=== PATIENT | female | born 1950 | race Caucasian/White ===

== ENCOUNTER 2017-04-17 16:54 | Emergency (ER) | payer MEDICARE, OTHER ==
--- NOTE | 2017-04-17 18:10 | EDM.PDOC ---
ED HPI GENERAL MEDICAL PROBLEM - General Chief Complaint: Lower Extremity Injury/Pain Stated Complaint: PT HAS INFECTION IN RT FOOT Time Seen by Provider: 04/17/17 18:05 Source of Information: Reports: Patient History Limitations: Reports: No Limitations - History of Present Illness INITIAL COMMENTS - FREE TEXT/NARRATIVE: HISTORY AND PHYSICAL: []67-year-old female presenting with right foot pain and erythema History of Present Illness: []Patient underwent surgery in [place] on her foot 3 different areas of incision there is a pin at the fourth right toe Erythema to the dorsum of her right foot exudate present Review of Systems: As per history of present illness and below otherwise all systems reviewed and negative. Past medical history: As per history of present illness and as reviewed below otherwise noncontributory. Surgical history: As per history of present illness and as reviewed below otherwise noncontributory. Social history: No reported history of drug or alcohol abuse. Family history: As per history of present illness and as reviewed below otherwise noncontributory. Physical exam: Alert and oriented female answering questions appropriately she is using full sentences without any shortness of breath HEENT: Atraumatic, normocehpalic, pupils reactive, negative for conjunctival pallor or scleral icterus, mucous membranes moist, throat clear, neck supple, nontender, trachea midline. Lungs: Clear to auscultation, breath sounds equal bilaterally, chest non tender. Heart: S1S2, regular, negative for clicks, rubs, or JVD. Abdomen: Soft, nondistended, nontender. Negative for masses or hepatossplenmegaly. Negative for costovertebral tenderness. Pelvis: Stable nontender. Genitourinary: Deferred. Rectal: Deferred Extremities: Right foot with new sutures, lateral ball of the foot sutures are in place no erythema present. Dorsum of the right foot wide area of erythema and exudate. Pin noted in the fifth toe. negative for cords or calf pain. Neurovascular unremarkable. Neuro: Awake, alert, oriented. Cranial nerves II through XII unremarkable. Cerebellum unremarkable. Motor and sensory unremarkable throughout. Exam nonfocal. Have discussed the concerns with Dr. Graham at [place] in [place], [place]. Have discussed that there are does not seem to be any flucuation/ fluid pockets on the x-ray chest the laboratory values my concerns regarding infection. Have discussed with him Rocephin given IV. He is agreeable she should have some Ceftin orally twice a day. Recheck her tomorrow for increasing erythema. If all looks well we'll have her keep her appointment Thursday. If there is any increase in the erythema will have her go to [place] to be admited as inpatient. Diagnostics: [CBC CMP blood cultures 2 wound culture x-rays] Therapeutics: [Rocephin 1 g IV] Impression: [Localized infection to right foot] Plan: []Discharge to home Place on antibiotic therapy Follow up with your surgeon in [place] Definitive disposition and diagnosis as appropriate pending reevaluation and review of above. Onset: Sudden (2) Duration: Day(s): (2) Location: Reports: Lower Extremity, Right Severity: Moderate Right Feet Pain Score (Numeric/FACES): 4 - Related Data Allergies Allergy/AdvReac Type Severity Reaction Status Date / Time No Known Allergies Allergy Verified 04/17/17 17:50 Home Meds: Home Meds Adalimumab [Humira Pediatric Crohn's] 40 mg IM ASDIRECTED 04/17/17 [History] Cefuroxime [Ceftin] 250 mg PO BID #10 tablet 04/17/17 [Rx] Naproxen Sodium [Aleve] 220 mg PO BID 04/17/17 [History] Past Medical History Immunologic History: Reports: Other (See Below) Other Immunologic History: RA Oncologic (Cancer) History: Reports: Other (See Below) Other Oncologic History: "skin cancer" Social & Family History - Family History Family Medical History: Noncontributory - Tobacco Use Smoking Status *Q: Never Smoker Second Hand Smoke Exposure: No - Caffeine Use Caffeine Use: Reports: Coffee - Recreational Drug Use Recreational Drug Use: No Review of Systems - Review of Systems Review Of Systems: ROS reveals no pertinent complaints other than HPI. ED EXAM, GENERAL - Physical Exam Exam: See Below (See dictation) Course - Vital Signs Last Recorded V/S: Last Vital Signs Temp 36.2 C 04/17/17 17:54 Pulse 72 04/17/17 17:54 Resp 16 04/17/17 17:54 BP 183/102 H 04/17/17 17:54 Pulse Ox 98 04/17/17 17:54 - Orders/Labs/Meds Orders: Active Orders 24 hr Category Date Time Status Foot 2V Rt [CR] Stat Exams 04/17/17 18:13 Taken CULTURE BLOOD [BC] Stat Lab 04/17/17 18:24 Received CULTURE BLOOD [BC] Stat Lab 04/17/17 18:30 Received CULTURE WOUND [RM] Stat Lab 04/17/17 18:28 Received Sodium Chloride 0.9% [Saline Flush] Med 04/17/17 18:12 Active 10 ml FLUSH ASDIRECTED PRN Sodium Chloride 0.9% [Saline Flush] Med 04/17/17 18:12 Active 2.5 ml FLUSH ASDIRECTED PRN Blood Culture x2 Reflex Set [OM.PC] Stat Oth 04/17/17 18:12 Ordered Saline Lock Insert [OM.PC] Stat Oth 04/17/17 18:12 Ordered Medication Orders Sodium Chloride (Saline Flush) 10 ml FLUSH ASDIRECTED PRN PRN Reason: Keep Vein Open Sodium Chloride (Saline Flush) 2.5 ml FLUSH ASDIRECTED PRN PRN Reason: Keep Vein Open Labs: Laboratory Tests 04/17/17 04/17/17 Range/Units 18:24 18:24 WBC 10.76 (4.0-11.0) K/uL RBC 5.11 (4.30-5.90) M/uL Hgb 14.3 (12.0-16.0) g/dL Hct 42.7 (36.0-46.0) % MCV 83.6 (80.0-98.0) fL MCH 28.0 (27.0-32.0) pg MCHC 33.5 (31.0-37.0) g/dL RDW Std Deviation 43.2 (28.0-62.0) fl RDW Coeff of [place]oz[place] 14 (11.0-15.0) % Plt Count 230 (150-400) K/uL MPV 10.90 (7.40-12.00) fL Neut % (Auto) 52.4 (48.0-80.0) % Lymph % (Auto) 35.6 (16.0-40.0) % [place] % (Auto) 8.7 (0.0-15.0) % Eos % (Auto) 2.6 (0.0-7.0) % Baso % (Auto) 0.7 (0.0-1.5) % Neut # (Auto) 5.6 (1.4-5.7) K/uL Lymph # (Auto) 3.8 H (0.6-2.4) K/uL [place] # (Auto) 0.9 H (0.0-0.8) K/uL Eos # (Auto) 0.3 (0.0-0.7) K/uL Baso # (Auto) 0.1 (0.0-0.1) K/uL Nucleated RBC % 0.0 /100WBC Nucleated RBCs # 0 K/uL Sodium 140 (136-146) mmol/L Potassium 4.1 (3.5-5.1) mmol/L Chloride 110 (98-110) mmol/L Carbon Dioxide 20 L (21-31) mmol/L BUN 22 (6.0-23.0) mg/dL Creatinine 1.0 (0.6-1.5) mg/dL Est Cr Clr Drug Dosing TNP Estimated GFR (MDRD) 55.0 ml/min Glucose 99 (60-110) mg/dL Calcium 9.8 (8.8-10.8) mg/dL Total Bilirubin 0.5 (0.1-1.5) mg/dL AST 23 (5-40) IU/L ALT 16 (8-54) IU/L Alkaline Phosphatase 98 (40-150) Total Protein 7.7 (6.0-8.0) g/dL Albumin 3.9 (3.4-4.8) g/dL Globulin 3.8 H (2.0-3.5) g/dL Albumin/Globulin Ratio 1.0 L (1.3-2.8) Meds: Medications Generic Name Dose Route Start Last Admin Trade Name Freq PRN Reason Stop Dose Admin Sodium Chloride 10 ml 04/17/17 18:12 Saline Flush FLUSH ASDIRECTED PRN Keep Vein Open Sodium Chloride 2.5 ml 04/17/17 18:12 Saline Flush FLUSH ASDIRECTED PRN Keep Vein Open Discontinued Medications Generic Name Dose Route Start Last Admin Trade Name Freq PRN Reason Stop Dose Admin Ceftriaxone Sodium/Dextrose 1 50 mls @ 100 mls/hr 04/17/17 18:50 04/17/17 19: 27 gm/ Premix IV 04/17/17 19:19 100 mls/hr ONETIME ONE Administration Departure - Departure Time of Disposition: 20:36 Disposition: Home, Self-Care 01 Condition: Good Clinical Impression: Infection of right foot - Discharge Information Prescriptions: Cefuroxime [Ceftin] 250 mg PO BID #10 tablet Referrals: PCP,None [Primary Care Provider] - Forms: ED Department Discharge Additional Instructions: The following information is given to patients seen in the emergency department who are being discharged to home. This information is to outline your options for follow-up care. We provide all patients seen in our emergency department with a follow-up referral. The need for follow-up, as well as the timing and circumstances, are variable depending upon the specifics of your emergency department visit. If you don't have a primary care physician on staff, we will provide you with a referral. We always advise you to contact your personal physician following an emergency department visit to inform them of the circumstance of the visit and for follow-up with them and/or the need for any referrals to a consulting specialist. The emergency department will also refer you to a specialist when appropriate. This referral assures that you have the opportunity for followup care with a specialist. All of these measure are taken in an effort to provide you with optimal care, which includes your followup. Under all circumstances we always encourage you to contact your private physician who remains a resource for coordinating your care. When calling for followup care, please make the office aware that this follow-up is from your recent emergency room visit. If for any reason you are refused follow-up, please contact the [facility] emergency department at and asked to speak to the emergency department charge nurse. For the infection on your foot have given you Rocephin 1 g IV tonight Prescription has been electronically sent to and pharmacy Please return tomorrow so that your foot may be reevaluated I did discuss this case with your surgeon Dr. Graham and if the redness has expanded will need to advise [facility] and he will see her there - My Orders Last 24 Hours: My Active Orders 04/17/17 18:12 Sodium Chloride 0.9% [Saline Flush] 10 ml FLUSH ASDIRECTED PRN Sodium Chloride 0.9% [Saline Flush] 2.5 ml FLUSH ASDIRECTED PRN Blood Culture x2 Reflex Set [OM.PC] Stat Saline Lock Insert [OM.PC] Stat 04/17/17 18:13 Foot 2V Rt [CR] Stat 04/17/17 18:24 CULTURE BLOOD [BC] Stat 04/17/17 18:28 CULTURE WOUND [RM] Stat 04/17/17 18:30 CULTURE BLOOD [BC] Stat - Assessment/Plan Last 24 Hours: My Active Orders 04/17/17 18:12 Sodium Chloride 0.9% [Saline Flush] 10 ml FLUSH ASDIRECTED PRN Sodium Chloride 0.9% [Saline Flush] 2.5 ml FLUSH ASDIRECTED PRN Blood Culture x2 Reflex Set [OM.PC] Stat Saline Lock Insert [OM.PC] Stat 04/17/17 18:13 Foot 2V Rt [CR] Stat 04/17/17 18:24 CULTURE BLOOD [BC] Stat 04/17/17 18:28 CULTURE WOUND [RM] Stat 04/17/17 18:30 CULTURE BLOOD [BC] Stat
[2017-04-17] MEDS ORDERED: Sodium Chloride 0.9% 10 ML Syringe FLUSH PRN (18:12)
[2017-04-17] MEDS ORDERED: Sodium Chloride 0.9% 2.5 ML Syringe FLUSH PRN (18:12)
[2017-04-17] MEDS ORDERED: cefTRIAXone 1 GM in Premix Bag 1 BAG IV ONE (18:50)
[2017-04-17 19:04] LABS: CHLORIDE,CL 110 mmol/L (98-110); SODIUM,NA 140 mmol/L (136-146)
--- NOTE | 2017-04-19 06:11 | CR ---
EXAM DATE: 04/17/17 PATIENT'S AGE: 67 Patient: SCAR COLBY Facility: [place], [place] Site . Site : [id number] Study: XRay Extremity foot [id number]/[id number] 7:08:39 PM Ordering Physician: Doctor Gonzalez Final Report: INDICATION: Infection following surgery 3 weeks prior TECHNIQUE: Two views right foot COMPARISON: None FINDINGS: Bones: Alignment is normal. No fractures or bone lesions. Joint spaces: Plate screw fixation across the 2nd MTP joint of the great toe. Percutaneous pin extends from the proximal 4th metatarsal bone through the distal phalanx traversing the MCP, PIP and DIP joint spaces. Soft tissues: Soft tissue edema dorsal to the metatarsal bones on the lateral view. IMPRESSION: Soft tissue edema dorsal to the metatarsal bones on the lateral view. Dictated by Juarez Bowden MD @ 04/17/2017 7:22:09 PM Dictated by: Juarez Bowden MD @ 04/17/2017 19:22:17 (Electronic Signature) Report Signed by Proxy. [employer]
== END 2017-04-17 20:43 | disposition home or self-care (01) ==
LOC: MW.ED 16:54
DX: L08.9 Local infection of the skin and subcutaneous tissue, unspecified (principal); Z98.890 Other specified postprocedural states
CPT/HCPCS: 36415; 73620; 80053; 85025; 87040; 87070; 96365; 99284; J0696; 99283

== ENCOUNTER 2017-04-18 10:05 | Emergency (ER) | payer MEDICARE, OTHER ==
[2017-04-18] MEDS ORDERED: Bacitracin Oint 1 GM U/D Packet TOP ONE (10:26)
--- NOTE | 2017-04-18 10:28 | EDM.PDOC ---
ED HPI GENERAL MEDICAL PROBLEM - General Chief Complaint: Wound Recheck Stated Complaint: RT FOOT INFECTION Time Seen by Provider: 04/18/17 10:24 Source of Information: Reports: Patient History Limitations: Reports: No Limitations - History of Present Illness INITIAL COMMENTS - FREE TEXT/NARRATIVE: HISTORY AND PHYSICAL: []67-year-old female presents for reevaluation of her right foot History of Present Illness: []Patient is alert and oriented she answers questions appropriately denies increasing pain Review of Systems: As per history of present illness and below otherwise all systems reviewed and negative. Past medical history: As per history of present illness and as reviewed below otherwise noncontributory. Surgical history: As per history of present illness and as reviewed below otherwise noncontributory. Social history: No reported history of drug or alcohol abuse. Family history: As per history of present illness and as reviewed below otherwise noncontributory. Physical exam: Alert and oriented female answers questions appropriately in full sentences without any shortness of breath. HEENT: Atraumatic, normocehpalic, pupils reactive, negative for conjunctival pallor or scleral icterus, mucous membranes moist, throat clear, neck supple, nontender, trachea midline. Lungs: Clear to auscultation, breath sounds equal bilaterally, chest non tender. Heart: S1S2, regular, negative for clicks, rubs, or JVD. Abdomen: Soft, nondistended, nontender. Negative for masses or hepatossplenmegaly. Negative for costovertebral tenderness. Pelvis: Stable nontender. Genitourinary: Deferred. Rectal: Deferred Extremities: Dorsum of right foot with skin marking around erythematous area. Redness has decreased in intensity and there is some receding of the erythema from the skin markings. No exudate is noted on the telephone that was covering this wound. negative for cords or calf pain. Neurovascular unremarkable. Neuro: Awake, alert, oriented. Cranial nerves II through XII unremarkable. Cerebellum unremarkable. Motor and sensory unremarkable throughout. Exam nonfocal. Diagnostics: [] Therapeutics: []Bacitracin Impression: [Improving foot infection] Plan: [Discharged to home Follow-up as scheduled with your surgeon in 2 days Any worsening of symptoms and she'll need to be reevaluated prior to your scheduled appointment] Definitive disposition and diagnosis as appropriate pending reevaluation and review of above. right foot Pain Score (Numeric/FACES): 6 - Related Data Allergies Allergy/AdvReac Type Severity Reaction Status Date / Time No Known Allergies Allergy Verified 04/18/17 10:17 Home Meds: Home Meds Adalimumab [Humira Pediatric Crohn's] 40 mg IM ASDIRECTED 04/17/17 [History] Cefuroxime [Ceftin] 250 mg PO BID #10 tablet 04/17/17 [Rx] Naproxen Sodium [Aleve] 220 mg PO BID 04/17/17 [History] Past Medical History Immunologic History: Reports: Other (See Below) Other Immunologic History: RA Oncologic (Cancer) History: Reports: Other (See Below) Other Oncologic History: "skin cancer" Social & Family History - Family History Family Medical History: Noncontributory - Tobacco Use Smoking Status *Q: Never Smoker Second Hand Smoke Exposure: No - Caffeine Use Caffeine Use: Reports: Coffee - Recreational Drug Use Recreational Drug Use: No ED ROS GENERAL - Review of Systems Review Of Systems: ROS reveals no pertinent complaints other than HPI. ED EXAM, SKIN/RASH Exam: See Below (see dictation) Course - Vital Signs Last Recorded V/S: Last Vital Signs Temp 36.2 C 04/18/17 10:17 Pulse 81 04/18/17 10:17 Resp 18 04/18/17 10:17 BP 156/116 H 04/18/17 10:17 Pulse Ox 95 04/18/17 10:17 Departure - Departure Time of Disposition: 10:27 Disposition: Home, Self-Care 01 Condition: Good Clinical Impression: Infection of right foot - Discharge Information Instructions: Wound Infection, [id number] Referrals: Josiane Meadows NP [Primary Care Provider] - Additional Instructions: The following information is given to patients seen in the emergency department who are being discharged to home. This information is to outline your options for follow-up care. We provide all patients seen in our emergency department with a follow-up referral. The need for follow-up, as well as the timing and circumstances, are variable depending upon the specifics of your emergency department visit. If you don't have a primary care physician on staff, we will provide you with a referral. We always advise you to contact your personal physician following an emergency department visit to inform them of the circumstance of the visit and for follow-up with them and/or the need for any referrals to a consulting specialist. The emergency department will also refer you to a specialist when appropriate. This referral assures that you have the opportunity for followup care with a specialist. All of these measure are taken in an effort to provide you with optimal care, which includes your followup. Under all circumstances we always encourage you to contact your private physician who remains a resource for coordinating your care. When calling for followup care, please make the office aware that this follow-up is from your recent emergency room visit. If for any reason you are refused follow-up, please contact the [facility] emergency department at and asked to speak to the emergency department charge nurse. Continue with the antibiotics that you have been prescribed Follow-up with Dr. Graham as scheduled on 04/20/2017 If you notice any worsening of symptoms prior to this appointment return immediately for reevaluation
[2017-04-18] MEDS ORDERED: Bacitracin Oint 1 GM U/D Packet ONE (10:34)
== END 2017-04-18 10:45 | disposition home or self-care (01) ==
LOC: MW.ED 10:05
DX: L08.9 Local infection of the skin and subcutaneous tissue, unspecified (principal); Z79.899 Other long term (current) drug therapy
CPT/HCPCS: 99282; 99283

== ENCOUNTER 2018-06-15 14:17 | Emergency (ER) | payer MEDICARE, OTHER ==
[2018-06-15] MEDS ORDERED: Sodium Chloride 0.9% 2.5 ML Syringe FLUSH PRN (14:48)
[2018-06-15] MEDS ORDERED: Sodium Chloride 0.9% 10 ML Syringe FLUSH PRN (14:48)
[2018-06-15] MEDS ORDERED: Diltiazem 25 MG/5 ML SDV IVPUSH ONE ×2 (14:53→17:19)
--- NOTE | 2018-06-15 14:54 | EDM.PDOC ---
ED HPI GENERAL MEDICAL PROBLEM - General Chief Complaint: Cardiovascular Problem Stated Complaint: FAST HEART RATE Time Seen by Provider: 06/15/18 14:30 Source of Information: Reports: Patient History Limitations: Reports: No Limitations - History of Present Illness INITIAL COMMENTS - FREE TEXT/NARRATIVE: Presents from the research anthropologist, , office. In the course of his exam, he found that the patient was irregularly tachycardic and sent her over to the emergency room. The patient states that she sees him on an ongoing basis for her rheumatoid arthritis which is treated with Humira. The patient states that she has noted some off and on dizziness and off-and-on palpitations over the last few months. She did see a primary care provider but they never did an EKG. Other than her rheumatoid symptoms she has been otherwise in her usual state of good health. She has had no chest pain or shortness of breath. 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 History: Reports: RA Other Musculoskeletal History: right foot nodules Neurological History: Reports: None Psychiatric History: Reports: Anxiety Endocrine/Metabolic History: Reports: None Hematologic History: Reports: None Immunologic History: Reports: Other (See Below) Other Immunologic History: RA Oncologic (Cancer) History: Reports: Other (See Below) Other Oncologic History: "skin cancer" Dermatologic History: Reports: None - Infectious Disease History Infectious Disease History: Reports: Chicken Pox, Measles - Past Surgical History Head Surgeries/Procedures: Reports: None HEENT Surgical History: Reports: Tonsillectomy Cardiovascular Surgical History: Reports: None Respiratory Surgical History: Reports: None GI Surgical History: Reports: None Female Surgical History: Reports: None Endocrine Surgical History: Reports: None Neurological Surgical History: Reports: None Musculoskeletal Surgical History: Reports: Other (See Below) Other Musculoskeletal Surgeries/Procedures:: surgery to right foot Oncologic Surgical History: Reports: None Dermatological Surgical History: Reports: None Social & Family History - Family History Family Medical History: Noncontributory - Tobacco Use Smoking Status *Q: Never Smoker Second Hand Smoke Exposure: No - Caffeine Use Caffeine Use: Reports: Coffee - Recreational Drug Use Recreational Drug Use: No ED ROS GENERAL - Review of Systems Review Of Systems: ROS reveals no pertinent complaints other than HPI. ED EXAM, GENERAL - Physical Exam Exam: See Below Exam Limited By: No Limitations General Appearance: Alert, No Apparent Distress Ears: Normal External Exam Nose: Normal Inspection Throat/Mouth: Normal Inspection Head: Atraumatic, Normocephalic Neck: Normal Inspection Respiratory/Chest: No Respiratory Distress, Lungs Clear, Normal Breath Sounds Cardiovascular: Normal Peripheral Pulses, Tachycardia, Irregularly Irregular GI/Abdominal: Soft Extremities: Normal Inspection, No Pedal Edema Neurological: Alert, Oriented, No Motor/Sensory Deficits Psychiatric: Normal Affect, Normal Mood Skin Exam: Warm, Dry, Intact, Normal Color, No Rash Lymphatic: No Adenopathy Course - Vital Signs Last Recorded V/S: Last Vital Signs Temp 36.2 C 06/15/18 14:27 Pulse 91 06/15/18 15:31 Resp 16 06/15/18 15:31 BP 141/97 H 06/15/18 15:31 Pulse Ox 95 06/15/18 15:31 - Orders/Labs/Meds Orders: Active Orders 24 hr Category Date Time Status EKG Documentation Completion [RC] STAT Care 06/15/18 14:49 Ordered Sodium Chloride 0.9% [Saline Flush] Med 06/15/18 14:48 Ordered 10 ml FLUSH ASDIRECTED PRN Sodium Chloride 0.9% [Saline Flush] Med 06/15/18 14:48 Ordered 2.5 ml FLUSH ASDIRECTED PRN Saline Lock Insert [OM.PC] Stat Oth 06/15/18 14:48 Ordered Medication Orders Sodium Chloride (Saline Flush) 10 ml FLUSH ASDIRECTED PRN PRN Reason: Keep Vein Open Sodium Chloride (Saline Flush) 2.5 ml FLUSH ASDIRECTED PRN PRN Reason: Keep Vein Open Labs: Laboratory Tests 06/15/18 06/15/18 Range/Units 14:37 14:37 WBC 7.89 (4.0-11.0) K/uL RBC 5.78 (4.30-5.90) M/uL Hgb 16.0 (12.0-16.0) g/dL Hct 47.3 H (36.0-46.0) % MCV 81.8 (80.0-98.0) fL MCH 27.7 (27.0-32.0) pg MCHC 33.8 (31.0-37.0) g/dL RDW Std Deviation 40.9 (28.0-62.0) fl RDW Coeff of Roz[place] 14 (11.0-15.0) % Plt Count 186 (150-400) K/uL MPV 10.80 (7.40-12.00) fL Neut % (Auto) 45.8 L (48.0-80.0) % Lymph % (Auto) 42.7 H (16.0-40.0) % [place] % (Auto) 8.1 (0.0-15.0) % Eos % (Auto) 2.5 (0.0-7.0) % Baso % (Auto) 0.9 (0.0-1.5) % Neut # (Auto) 3.6 (1.4-5.7) K/uL Lymph # (Auto) 3.4 H (0.6-2.4) K/uL [place] # (Auto) 0.6 (0.0-0.8) K/uL Eos # (Auto) 0.2 (0.0-0.7) K/uL Baso # (Auto) 0.1 (0.0-0.1) K/uL Nucleated RBC % 0.0 /100WBC Nucleated RBCs # 0 K/uL Sodium 138 (136-145) mmol/L Potassium 3.5 (3.5-5.1) mmol/L Chloride 107 (98-107) mmol/L Carbon Dioxide 22.7 (21.0-32.0) mmol/L BUN 14 (7.0-18.0) mg/dL Creatinine 1.1 H (0.6-1.0) mg/dL Est Cr Clr Drug Dosing 34.18 mL/min Estimated GFR (MDRD) 49.1 ml/min Glucose 128 H (74-106) mg/dL Calcium 10.1 (8.5-10.1) mg/dL Total Bilirubin 0.7 (0.2-1.0) mg/dL AST 22 (15-37) IU/L ALT 21 (14-63) IU/L Alkaline Phosphatase 99 (46-116) U/L Troponin I < 0.050 (0.000-0.056) ng/mL Total Protein 8.2 (6.4-8.2) g/dL Albumin 3.9 (3.4-5.0) g/dL Globulin 4.3 H (2.6-4.0) g/dL Albumin/Globulin Ratio 0.9 (0.9-1.6) TSH 3rd Generation 0.75 (0.36-3.74) uIU/mL Meds: Medications Generic Name Dose Route Start Last Admin Trade Name Freq PRN Reason Stop Dose Admin Sodium Chloride 10 ml 06/15/18 14:48 Saline Flush FLUSH ASDIRECTED PRN Keep Vein Open Sodium Chloride 2.5 ml 06/15/18 14:48 Saline Flush FLUSH ASDIRECTED PRN Keep Vein Open Discontinued Medications Generic Name Dose Route Start Last Admin Trade Name Freq PRN Reason Stop Dose Admin Diltiazem HCl 20 mg 06/15/18 14:53 06/15/18 15:27 Diltiazem IVPUSH 06/15/18 14:54 20 mg ONETIME ONE Administration - Re-Assessments/Exams Free Text/Narrative Re-Assessment/Exam: 06/15/18 17:10 No available beds at this facility. Dr. Brunson at closest facility--[facility] accepted patient in transfer. Full report to same Free Text/Narrative Re-Assessment/Exam: 06/15/18 17:18 Heart rate came down to the 90s for approximately an hour after singular diltiazem 20 mg dose. Now, rate back up into the 120s. Departure - Departure Time of Disposition: 17:21 Disposition: DC/Tfer to Acute Hospital 02 Reason for Transfer *Q: Other (diversion) Condition: Good Clinical Impression: Atrial fibrillation Qualifiers: Atrial fibrillation type: unspecified Qualified Code(s): I48.91 - Unspecified atrial fibrillation Referrals: PCP,Unknown [Primary Care Provider] - Forms: ED Department Discharge - My Orders Last 24 Hours: My Active Orders 06/15/18 14:48 Sodium Chloride 0.9% [Saline Flush] 10 ml FLUSH ASDIRECTED PRN Sodium Chloride 0.9% [Saline Flush] 2.5 ml FLUSH ASDIRECTED PRN Saline Lock Insert [OM.PC] Stat 06/15/18 14:49 EKG Documentation Completion [RC] STAT - Assessment/Plan Last 24 Hours: My Active Orders 06/15/18 14:48 Sodium Chloride 0.9% [Saline Flush] 10 ml FLUSH ASDIRECTED PRN Sodium Chloride 0.9% [Saline Flush] 2.5 ml FLUSH ASDIRECTED PRN Saline Lock Insert [OM.PC] Stat 06/15/18 14:49 EKG Documentation Completion [RC] STAT
[2018-06-15 15:25] LABS: CHLORIDE,CL 107 mmol/L (98-107); SODIUM,NA 138 mmol/L (136-145)
[2018-06-15] MEDS ORDERED: LORazepam 2 MG/ML SDV IVPUSH ONE (17:05)
== END 2018-06-15 18:02 ==
LOC: MW.ED 14:17
DX: I48.91 Unspecified atrial fibrillation (principal); Z79.899 Other long term (current) drug therapy
CPT/HCPCS: 36415; 80053; 84443; 84484; 85025; 93005; 96374; 96375; 96376; 99285; J2060; J3490

== ENCOUNTER 2018-08-04 14:19 | Emergency (ER) | payer MEDICARE, OTHER ==
--- NOTE | 2018-08-04 15:54 | EDM.PDOC ---
ED HPI GENERAL MEDICAL PROBLEM - General Chief Complaint: Lower Extremity Injury/Pain Stated Complaint: LEFT KNEE PAIN Time Seen by Provider: 08/04/18 15:54 Source of Information: Reports: Patient History Limitations: Reports: No Limitations - History of Present Illness INITIAL COMMENTS - FREE TEXT/NARRATIVE: HISTORY AND PHYSICAL: History of present illness: Patient is a 68-year-old female here with complaint of left knee injury. She states she slipped on the ice about an hour prior to arrival to the ED. She states she twisted her knee and then fell back hitting her right shoulder but denies head injury. She is on a Eliquis for atrial fibrillation. She states she did not hit her head. He did "choked her pretty good." She denies headache, loss of consciousness, neck pain, nausea, vomiting. She does have dizziness but this is not new and she is currently on Holter monitor for this. Review of systems: As per history of present illness and below otherwise all systems reviewed and negative. Past medical history: As per history of present illness and as reviewed below otherwise noncontributory. Surgical history: As per history of present illness and as reviewed below otherwise noncontributory. Social history: No reported history of drug or alcohol abuse. Family history: As per history of present illness and as reviewed below otherwise noncontributory. Physical exam: General: Patient sitting comfortably in no acute distress and nontoxic appearing HEENT: Atraumatic, normocephalic, pupils reactive, negative for conjunctival pallor or scleral icterus, mucous membranes moist, throat clear, neck supple, nontender, trachea midline. No meningeal signs. Lungs: Clear to auscultation, breath sounds equal bilaterally, chest nontender. Heart: S1S2, regular, negative for clicks, rubs, or overt murmur. Abdomen: Soft, nondistended, nontender. Negative for masses or hepatosplenomegaly. Negative for costovertebral tenderness. No rigidity, rebound , guarding. Pelvis: Stable nontender. Genitourinary: Deferred. Rectal: Deferred. Extremities: Slight swelling of the left knee. Pain to palpation of medial aspect of the knee. Negative varus and valgus stress test. Negative anterior and posterior drawer. negative for cords or calf pain. Neurovascular unremarkable. Neuro: Awake, alert, oriented. Cranial nerves II through XII unremarkable. Cerebellum unremarkable. Motor and sensory unremarkable throughout. Exam nonfocal. Notes: Diagnostics: X-ray left knee, head CT without contrast Therapeutics: Patient declined knee immobilizer Prescriptions: None Impression: Left knee injury Plan: 1. Ice, elevate and tylenol as needed. 2. Follow up with orthopedics, please call the number provided to schedule an appointment 3. Return to ED as needed as discussed Definitive disposition and diagnosis as appropriate pending reevaluation and review of above. Left Knee Pain Score (Numeric/FACES): 7 - Related Data Allergies Allergy/AdvReac Type Severity Reaction Status Date / Time No Known Allergies Allergy Verified 08/04/18 14:29 Home Meds: Home Meds Adalimumab [Humira Pediatric Crohn's] 40 mg IM ASDIRECTED 04/17/17 [History] Naproxen Sodium [Aleve] 220 mg PO BID 04/17/17 [History] Apixaban [Eliquis] 5 mg PO DAILY 08/04/18 [History] Diltiazem [Cardizem CD] 120 mg PO DAILY 08/04/18 [History] Past Medical History HEENT History: Reports: None Cardiovascular History: Reports: Afib Respiratory History: Reports: None Gastrointestinal History: Reports: None Genitourinary History: Reports: None 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: Musculoskeletal History: Reports: RA Other Musculoskeletal History: right foot nodules Neurological History: Reports: None Psychiatric History: Reports: Anxiety Endocrine/Metabolic History: Reports: None Hematologic History: Reports: None Immunologic History: Reports: Other (See Below) Other Immunologic History: RA Oncologic (Cancer) History: Reports: Other (See Below) Other Oncologic History: "skin cancer" Dermatologic History: Reports: None - Infectious Disease History Infectious Disease History: Reports: C-Difficile, Measles, Mumps - Past Surgical History Head Surgeries/Procedures: Reports: None HEENT Surgical History: Reports: Tonsillectomy Cardiovascular Surgical History: Reports: None Respiratory Surgical History: Reports: None GI Surgical History: Reports: None Female Surgical History: Reports: None Endocrine Surgical History: Reports: None Neurological Surgical History: Reports: None Musculoskeletal Surgical History: Reports: Other (See Below) Other Musculoskeletal Surgeries/Procedures:: surgery to right foot Oncologic Surgical History: Reports: None Dermatological Surgical History: Reports: None Social & Family History - Family History Family Medical History: Noncontributory - Tobacco Use Smoking Status *Q: Never Smoker Second Hand Smoke Exposure: No - Caffeine Use Caffeine Use: Reports: Coffee - Recreational Drug Use Recreational Drug Use: No Review of Systems - Review of Systems Review Of Systems: ROS reveals no pertinent complaints other than HPI. ED EXAM, GENERAL - Physical Exam Exam: See Below (See dictation) Course - Vital Signs Last Recorded V/S: Last Vital Signs Temp 97.8 F 08/04/18 14:32 Pulse 70 08/04/18 14:32 Resp 16 08/04/18 14:32 BP 143/77 H 08/04/18 14:32 Pulse Ox 99 08/04/18 14:32 - Orders/Labs/Meds Orders: Active Orders 24 hr Category Date Time Status EKG 12 Lead [EKG Documentation Completion] [RC] STAT Care 08/04/18 15:03 Active Knee 3V Lt [CR] Stat Exams 08/04/18 15:54 Ordered Departure - Departure Time of Disposition: 17:50 Disposition: Home, Self-Care 01 Condition: Good Clinical Impression: Left knee injury - Discharge Information Referrals: Josiane Meadows NP [Primary Care Provider] - Forms: ED Department Discharge Additional Instructions: The following information is given to patients seen in the emergency department who are being discharged to home. This information is to outline your options for follow-up care. We provide all patients seen in our emergency department with a follow-up referral. The need for follow-up, as well as the timing and circumstances, are variable depending upon the specifics of your emergency department visit. If you don't have a primary care physician on staff, we will provide you with a referral. We always advise you to contact your personal physician following an emergency department visit to inform them of the circumstance of the visit and for follow-up with them and/or the need for any referrals to a consulting specialist. The emergency department will also refer you to a specialist when appropriate. This referral assures that you have the opportunity for follow-up care with a specialist. All of these measure are taken in an effort to provide you with optimal care, which includes your follow-up. Under all circumstances we always encourage you to contact your private physician who remains a resource for coordinating your care. When calling for follow-up care, please make the office aware that this follow-up is from your recent emergency room visit. If for any reason you are refused follow-up, please contact the [facility] Emergency Department at and asked to speak to the emergency department charge nurse. [facility] [address], [address] [place] [address] 1. Ice, elevate and tylenol as needed. 2. Follow up with orthopedics, please call the number provided to schedule an appointment 3. Return to ED as needed as discussed - My Orders Last 24 Hours: My Active Orders 08/04/18 15:03 EKG 12 Lead [EKG Documentation Completion] [RC] STAT 08/04/18 15:54 Knee 3V Lt [CR] Stat - Assessment/Plan Last 24 Hours: My Active Orders 08/04/18 15:03 EKG 12 Lead [EKG Documentation Completion] [RC] STAT 08/04/18 15:54 Knee 3V Lt [CR] Stat
--- NOTE | 2018-08-04 17:39 | CT ---
INDICATION: fall, on blood thinner CT HEAD WITHOUT CONTRAST TECHNIQUE: Multiple axial CT images were performed through the head without intravenous contrast administration. COMPARISON: No previous studies are currently available for comparison. FINDINGS: No acute intracranial hemorrhage is identified. No extra-axial collections are evident and there is no mass effect or midline shift. Ventricles are normal in size and configuration. Brain parenchyma appears normal with unremarkable acosta-white differentiation. Osseous structures are within normal limits and no fractures are seen. Included portions of the paranasal sinuses and mastoid air cells are normally aerated. IMPRESSION: Normal non-contrast head CT. MIGUELITO MENDEZ MD [employer] Dictated by: Marquez Mendez MD @ 08/04/2018 17:37:57 (Electronically Signed)
--- NOTE | 2018-08-05 11:41 | CR ---
EXAM DATE: 08/04/18 PATIENT'S AGE: 68 Patient: SCAR COLBY Facility: [facility], [facility] . Site : [id number] Study: XRay-Knee Left [id number]/13/2019 5:29:44 PM Ordering Physician: Doctor Gonzalez Final Report: INDICATION: Pain after fall today COMPARISON: None available. FINDINGS: The left knee was examined with AP, lateral and sunrise views for a total of three views. There is no sign of fracture or dislocation. The medial and lateral compartments are normal in height. There is a moderate suprapatellar joint effusion. No soft tissue abnormality is seen. IMPRESSION: Moderate suprapatellar joint effusion. No sign of acute osseous injury. Dictated by Michael Navarro MD @ Aug 04 2018 5:48PM Signed by: Michael Navarro MD @08/04/2018 5:49:57 PM (Electronic Signature) Report Signed by Proxy. [facility]
== END 2018-08-04 18:23 | disposition home or self-care (01) ==
LOC: MW.ED 14:19
DX: S89.92XA Unspecified injury of left lower leg, initial encounter (principal); M06.9 Rheumatoid arthritis, unspecified; W00.0XXA Fall on same level due to ice and snow, initial encounter
CPT/HCPCS: 70450; 70450-26; 73562-26-LT; 73562-LT; 93005; 99284-25

== ENCOUNTER 2019-08-17 12:30 | Emergency (ER) | payer MEDICARE, OTHER ==
[2019-08-17] MEDS ORDERED: Aspirin 81 MG Tab.Chew PO ONE (12:40)
[2019-08-17] MEDS ORDERED: Aspirin 81 MG Tab.Chew ONE (12:41)
--- NOTE | 2019-08-17 12:43 | EDM.PDOC ---
ED HPI GENERAL MEDICAL PROBLEM - General Chief Complaint: Chest Pain Stated Complaint: CHEST PAIN Time Seen by Provider: 08/17/19 12:40 Source of Information: Reports: Patient History Limitations: Reports: No Limitations - History of Present Illness INITIAL COMMENTS - FREE TEXT/NARRATIVE: Patient is a 69-year-old female with a past medical history of hyperlipidemia, obesity presenting with a chief complaint of chest pain. Patient states the chest pain started around 4 AM this morning. Patient states that she feels pain going across the chest and described as a pressure-like sensation. Patient denies any fevers, chills, arm pain, jaw pain. Patient does report associated nausea and shortness of breath. Patient does not have any prior history of MT and does not have any history of this pain being similar. Pmhx: hyperLipidemia, atrial fibrillation Pshx: None Family Hx: noncontributory Smoking history? no Etoh use? none Drug use? none In addition to that documented in the HPI above, the additional ROS was obtained : Constitutional: Denies fevers or chills Eyes: Denies vision changes ENMT: Denies sore throat CV: Per HPI Resp: HPI GI: Denies vomiting or diarrhea : Denies painful urination MSK: Denies recent trauma Skin: Denies new rashes Neuro: Denies new numbness or tingling or weakness Endocrine: Denies unexpected weight loss Heme: Denies bleeding disorders I have reviewed the triage vital signs Const: Well nourished, well developed, appears stated age Eyes: PERRL, no conjunctival injection HENT: NCAT, Neck supple without meningismus CV: RRR, Warm, well-perfused extremities RESP: CTAB, Unlabored respiratory effort GI: soft, non-tender, non-distended, no masses MSK: No gross deformities appreciated Skin: Warm, dry. 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 Sensation and motor function of extremities grossly intact. Psych: Appropriate mood and affect Assessment and plan: Patient is a 69-year-old female presenting with chest pain. Patient's initial EKG demonstrated ST changes concerning for an inferior MT. Patient's initial troponin was greater than 2. Patient was given aspirin, Plavix and initiated with heparin. Patient will require transfer to [place] for cardiology evaluation. I spoke with Dr. White over the phone who is the emergency room physician who also discussed with cardiology, Dr. Watt. They accepted the patient for transfer. Thrombolytics were not given given the time of onset and per request of cardiology. At the time of transfer, the patient is hemodynamically stable, awake and alert and understands the risk and benefits of being transferred. All questions were addressed and answered. Patient agrees with plan, including transfer. Chest Pain Score (Numeric/FACES): 7 - Related Data Allergies Allergy/AdvReac Type Severity Reaction Status Date / Time No Known Allergies Allergy Verified 08/17/19 12:36 Home Meds: Home Meds Adalimumab [Humira Pediatric Crohn's] 40 mg IM ASDIRECTED 04/17/17 [History] Naproxen Sodium [Aleve] 220 mg PO BID 04/17/17 [History] Apixaban [Eliquis] 5 mg PO BID 08/04/18 [History] Diltiazem [Cardizem CD] 120 mg PO DAILY 08/04/18 [History] Past Medical History HEENT History: Reports: None Cardiovascular History: Reports: Afib, Hypertension Respiratory History: Reports: None Gastrointestinal History: Reports: None Genitourinary History: Reports: None [employer] LEAD History: Reports: Musculoskeletal History: Reports: RA Other Musculoskeletal History: right foot nodules Neurological History: Reports: None Psychiatric History: Reports: Anxiety, Depression Endocrine/Metabolic History: Reports: None Hematologic History: Reports: None Immunologic History: Reports: Other (See Below) Other Immunologic History: RA Oncologic (Cancer) History: Reports: Other (See Below) Other Oncologic History: "skin cancer" Dermatologic History: Reports: None - Infectious Disease History Infectious Disease History: Reports: None - Past Surgical History Head Surgeries/Procedures: Reports: None HEENT Surgical History: Reports: Tonsillectomy Cardiovascular Surgical History: Reports: None Respiratory Surgical History: Reports: None GI Surgical History: Reports: None Female Surgical History: Reports: None Endocrine Surgical History: Reports: None Neurological Surgical History: Reports: None Musculoskeletal Surgical History: Reports: Other (See Below) Other Musculoskeletal Surgeries/Procedures:: surgery to right foot. Left ankle fusion Oncologic Surgical History: Reports: None Dermatological Surgical History: Reports: None Social & Family History - Family History Family Medical History: Noncontributory - Tobacco Use Smoking Status *Q: Never Smoker Second Hand Smoke Exposure: No - Caffeine Use Caffeine Use: Reports: Coffee - Recreational Drug Use Recreational Drug Use: No ED ROS GENERAL - Review of Systems Review Of Systems: See Below ED EXAM, GENERAL - Physical Exam Exam: See Below Course - Vital Signs Last Recorded V/S: Last Vital Signs Temp 36.6 C 08/17/19 12:34 Pulse 95 08/17/19 12:34 Resp 18 08/17/19 12:34 BP 151/87 H 08/17/19 12:34 Pulse Ox 97 08/17/19 12:34 - Orders/Labs/Meds Orders: Active Orders 24 hr Category Date Time Status EKG Documentation Completion [RC] STAT Care 08/17/19 12:38 Active EKG Documentation Completion [RC] STAT Care 08/17/19 12:45 Active Chest 1V Frontal [CR] Stat Exams 08/17/19 12:40 Ordered B-TYPE NATRIURETIC PEPTIDE,BNP [CHEM] Stat Lab 08/17/19 12:35 Received Heparin Sod,Pork In 0.45% Nacl [Heparin-1/2Ns 25,000 Med 08/17/19 13:15 Active Units/500] 25,000 unit in 500 ml IV TITRATE Medication Orders Heparin Sodium/Sodium Chloride (Heparin-1/2ns 25,000 Units/500) 25,000 unit in 500 mls @ 16.8 mls/hr IV TITRATE NANCIE; Protocol Labs: Laboratory Tests 08/17/19 08/17/19 08/17/19 Range/Units 12:35 12:35 12:35 WBC 16.55 H (4.0-11.0) K/uL RBC 5.68 (4.30-5.90) M/uL Hgb 15.5 (12.0-16.0) g/dL Hct 47.1 H (36.0-46.0) % MCV 82.9 (80.0-98.0) fL MCH 27.3 (27.0-32.0) pg MCHC 32.9 (31.0-37.0) g/dL RDW Std Deviation 42.3 (28.0-62.0) fl RDW Coeff of Rozina 14 (11.0-15.0) % Plt Count 197 (150-400) K/uL MPV 11.30 (7.40-12.00) fL Neut % (Auto) 72.7 (48.0-80.0) % Lymph % (Auto) 17.3 (16.0-40.0) % [place] % (Auto) 9.1 (0.0-15.0) % Eos % (Auto) 0.5 (0.0-7.0) % Baso % (Auto) 0.4 (0.0-1.5) % Neut # (Auto) 12.0 H (1.4-5.7) K/uL Lymph # (Auto) 2.9 H (0.6-2.4) K/uL [place] # (Auto) 1.5 H (0.0-0.8) K/uL Eos # (Auto) 0.1 (0.0-0.7) K/uL Baso # (Auto) 0.1 (0.0-0.1) K/uL Nucleated RBC % 0.0 /100WBC Nucleated RBCs # 0 K/uL INR 1.06 Sodium 140 (136-145) mmol/L Potassium 4.0 (3.5-5.1) mmol/L Chloride 104 (98-107) mmol/L Carbon Dioxide 24.1 (21.0-32.0) mmol/L BUN 14 (7.0-18.0) mg/dL Creatinine 1.2 H (0.6-1.0) mg/dL Est Cr Clr Drug Dosing TNP Estimated GFR (MDRD) 44.3 ml/min Glucose 124 H (74-106) mg/dL Calcium 9.7 (8.5-10.1) mg/dL Total Bilirubin 1.0 (0.2-1.0) mg/dL AST 32 (15-37) IU/L ALT 22 (14-63) IU/L Alkaline Phosphatase 113 (46-116) U/L Troponin I 2.019 H* (0.000-0.056) ng/mL Total Protein 8.1 (6.4-8.2) g/dL Albumin 4.2 (3.4-5.0) g/dL Globulin 3.9 (2.6-4.0) g/dL Albumin/Globulin Ratio 1.1 (0.9-1.6) Meds: Medications Generic Name Dose Route Start Last Admin Trade Name Freq PRN Reason Stop Dose Admin Heparin Sodium/Sodium Chloride 25,000 unit in 500 mls @ 16.8 mls/hr 08/17/19 13:15 Heparin-1/2ns 25,000 Units/500 IV TITRATE NANCIE Protocol 12 UNITS/KG/HR Discontinued Medications Generic Name Dose Route Start Last Admin Trade Name Cher PRN Reason Stop Dose Admin Aspirin 324 mg 08/17/19 12:40 08/17/19 12:44 Aspirin PO 08/17/19 12:41 324 mg ONETIME ONE Administration Aspirin Confirm 08/17/19 12:41 08/17/19 12:45 Aspirin Administered 08/17/19 12:42 Not Given Dose 324 mg .ROUTE .STK-MED ONE Clopidogrel Bisulfate 600 mg 08/17/19 13:02 Plavix PO 08/17/19 13:03 ONETIME ONE Heparin Sodium (Porcine) 4,000 units 08/17/19 13:03 Heparin Sodium IVPUSH 08/17/19 13:04 .BOLUS ONE Heparin Sodium/Sodium Chloride Confirm 08/17/19 13:08 Heparin-1/2ns 25,000 Units/500 Administered 08/17/19 13:09 Dose 25,000 unit in 500 mls @ as directed IV .STK-MED ONE Departure - Departure Time of Disposition: 13:23 Disposition: DC/Tfer to Acute Hospital 02 Reason for Transfer *Q: Primary PCI Indicated Condition: Good Clinical Impression: Acute myocardial infarction Referrals: Josiane Meadows NP [Primary Care Provider] - Forms: ED Department Discharge Sepsis Event Note - Evaluation Sepsis Screening Result: No Definite Risk - Focused Exam Vital Signs: Vital Signs Temp Pulse Resp BP Pulse Ox 08/17/19 12:34 36.6 C 95 18 151/87 H 97 Date Exam was Performed: 08/17/19 Time Exam was Performed: 13:16 - My Orders Last 24 Hours: My Active Orders 08/17/19 12:35 B-TYPE NATRIURETIC PEPTIDE,BNP [CHEM] Stat 08/17/19 12:38 EKG Documentation Completion [RC] STAT 08/17/19 12:40 Chest 1V Frontal [CR] Stat 08/17/19 12:45 EKG Documentation Completion [RC] STAT 08/17/19 13:15 Heparin Sod,Pork In 0.45% Nacl [Heparin-1/2Ns 25,000 Units/500] 25,000 unit in 500 ml IV TITRATE - Assessment/Plan Last 24 Hours: My Active Orders 08/17/19 12:35 B-TYPE NATRIURETIC PEPTIDE,BNP [CHEM] Stat 08/17/19 12:38 EKG Documentation Completion [RC] STAT 08/17/19 12:40 Chest 1V Frontal [CR] Stat 08/17/19 12:45 EKG Documentation Completion [RC] STAT 08/17/19 13:15 Heparin Sod,Pork In 0.45% Nacl [Heparin-1/2Ns 25,000 Units/500] 25,000 unit in 500 ml IV TITRATE
[2019-08-17] MEDS ORDERED: Clopidogrel 75 MG Tab PO ONE (13:02)
[2019-08-17] MEDS ORDERED: Heparin Sodium 5,000 Units/ML Vial IVPUSH ONE (13:03)
[2019-08-17 13:08] LABS: BLOOD UREA NITROGEN,BUN 14 mg/dL (7.0-18.0); CARBON DIOXIDE,CO2 24.1 mmol/L (21.0-32.0); CHLORIDE,CL 104 mmol/L (98-107); GLUCOSE RANDOM 124 mg/dL (74-106); SODIUM,NA 140 mmol/L (136-145)
[2019-08-17] MEDS ORDERED: Heparin Sod,Pork In 0.45% Nacl 25,000 UNIT/500 ML IV.SOLN IV ONE (13:08)
[2019-08-17] MEDS ORDERED: Heparin Sod,Pork In 0.45% Nacl 25,000 UNIT/500 ML IV.SOLN IV SCH (13:15)
== END 2019-08-17 13:35 ==
LOC: MW.ED 12:30
DX: I21.9 Acute myocardial infarction, unspecified (principal); I10 Essential (primary) hypertension; I48.91 Unspecified atrial fibrillation; M06.9 Rheumatoid arthritis, unspecified; Z79.899 Other long term (current) drug therapy; Z79.01 Long term (current) use of anticoagulants
CPT/HCPCS: 36415; 80053; 83880; 84484; 85025; 85610; 93005; 96374; 99291; A9270; J1644

== ENCOUNTER 2019-08-20 21:43 | Observation (INO) | payer MEDICARE, OTHER ==
[2019-08-20 22:40] LABS: BLOOD UREA NITROGEN,BUN 18 mg/dL (7.0-18.0); CARBON DIOXIDE,CO2 23.6 mmol/L (21.0-32.0); CHLORIDE,CL 104 mmol/L (98-107); GLUCOSE RANDOM 118 mg/dL (74-106); POTASSIUM,K 4.1 mmol/L (3.5-5.1); SODIUM,NA 139 mmol/L (136-145)
[2019-08-20] MEDS ORDERED: Aspirin 81 MG Tab.Chew PO ONE (22:51)
[2019-08-20] MEDS ORDERED: Clopidogrel 75 MG Tab PO ONE (22:51)
--- NOTE | 2019-08-20 22:54 | EDM.PDOC ---
ED [facility] GENERAL MEDICAL PROBLEM - General Chief Complaint: Chest Pain Stated Complaint: CHEST PAIN Time Seen by Provider: 08/20/19 23:00 Source of Information: Reports: Patient History Limitations: Reports: No Limitations - History of Present Illness INITIAL COMMENTS - FREE TEXT/NARRATIVE: Patient 69-year-old female past medical history of atrial fibrillation hypertension and myocardial infarction. Patient presents with a chief complaint of chest pain. Patient was seen by me in the emergency room several days ago with a similar chief complaint and found to have a acute ND. Patient states that the chest pain started this afternoon. Patient states it was the same type of pain radiating across her chest to her right arm. Patient denies any nausea, vomiting, diarrhea. Patient denies any palpitations or lightheadedness. Patient did not take any medications other than Excedrin for this pain. This did not improve her pain. Patient states that when she was admitted at [place] she did not have any stents placed and they did not find any blockages in her coronary arteries. Patient was kept in the hospital overnight and discharged the next day. Pmhx: None Pshx: None Family Hx: noncontributory Smoking history? no Etoh use? none Drug use? none In addition to that documented in the HPI above, the additional ROS was obtained : Constitutional: Denies fevers or chills Eyes: Denies vision changes ENMT: Denies sore throat CV: Per HPI Resp: Denies SOB GI: Denies vomiting or diarrhea : Denies painful urination MSK: Denies recent trauma Skin: Denies new rashes Neuro: Denies new numbness or tingling or weakness Endocrine: Denies unexpected weight loss Heme: Denies bleeding disorders I have reviewed the triage vital signs Const: Well nourished, well developed, appears stated age Eyes: PERRL, no conjunctival injection HENT: NCAT, Neck supple without meningismus CV: RRR, Warm, well-perfused extremities RESP: CTAB, Unlabored respiratory effort GI: soft, non-tender, non-distended, no masses MSK: No gross deformities appreciated Skin: Warm, dry. 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 Sensation and motor function of extremities grossly intact. Psych: Appropriate mood and affect Assessment and plan: Patient is a 69-year-old female presenting with a chief complaint of chest pain. Patient was recently transferred for diagnosis of myocardial infarction to [place]. I discussed the case with on-call ER physician at [place] Dr. Molina. Dr. Molina informed me that cardiac cath had been done but no stents have been placed. Patient was diagnosed with NSTEMI and discharged the next day. He relayed to me that the EKG findings in V2 through V6 on our EKG were seen on EKGs previously when she was admitted. Therefore, there are no new EKG changes on patient's visit to the emergency room room department today. Serial EKGs were performed in the ER without any changes. Labs were performed and demonstrated elevation of the troponin at 0.127 which is decreased from when she was discharged from the hospital several days ago. The troponin was trended and was continued to be down trending. Patient's chest pain also did improve after the administration of pain medication. D-dimer was performed to rule out pulmonary embolism which is low likelihood with a negative d-dimer. Other considerations include aortic dissection which seems less likely given nature of pain and cardiac history. Given the patient's hemodynamic stability improvement in pain and unchanged EKG with a downtrending troponin patient be placed in observation in the hospital for further monitoring. Patient has a heart score of 7. Case discussed with Dr. Pimentel the hospitalist who agreed to keep the patient under observation. chest Pain Score (Numeric/FACES): 10 - Related Data Allergies Allergy/AdvReac Type Severity Reaction Status Date / Time No Known Allergies Allergy Verified 08/20/19 22:01 Home Meds: Home Meds Adalimumab [Humira Pediatric Crohn's] 40 mg IM ASDIRECTED 04/17/17 [History] Apixaban [Eliquis] 5 mg PO BID 08/04/18 [History] Diltiazem [Cardizem CD] 120 mg PO DAILY 08/04/18 [History] Past Medical History HEENT History: Reports: Impaired Vision, Other (See Below) Other HEENT History: wears glasses Cardiovascular History: Reports: Afib, Hypertension Respiratory History: Reports: None Gastrointestinal History: Reports: None Genitourinary History: Reports: None 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: Musculoskeletal History: Reports: RA Other Musculoskeletal History: right foot nodules Neurological History: Reports: None Psychiatric History: Reports: Anxiety, Depression Endocrine/Metabolic History: Reports: None Hematologic History: Reports: None Immunologic History: Reports: Other (See Below) Other Immunologic History: RA Oncologic (Cancer) History: Reports: Other (See Below) Other Oncologic History: "skin cancer" Dermatologic History: Reports: None - Infectious Disease History Infectious Disease History: Reports: Chicken Pox - Past Surgical History Head Surgeries/Procedures: Reports: None HEENT Surgical History: Reports: Tonsillectomy Cardiovascular Surgical History: Reports: None Respiratory Surgical History: Reports: None GI Surgical History: Reports: None Female Surgical History: Reports: None Endocrine Surgical History: Reports: None Neurological Surgical History: Reports: None Musculoskeletal Surgical History: Reports: Other (See Below) Other Musculoskeletal Surgeries/Procedures:: surgery to right foot. Left ankle fusion Oncologic Surgical History: Reports: None Dermatological Surgical History: Reports: None Social & Family History - Family History Family Medical History: Noncontributory - Tobacco Use Smoking Status *Q: Never Smoker Second Hand Smoke Exposure: No - Caffeine Use Caffeine Use: Reports: Coffee - Recreational Drug Use Recreational Drug Use: No ED ROS GENERAL - Review of Systems Review Of Systems: See Below ED EXAM, GENERAL - Physical Exam Exam: See Below Course - Vital Signs Last Recorded V/S: Last Vital Signs Temp 36.9 C 08/20/19 21:44 Pulse 88 08/21/19 01:20 Resp 18 08/21/19 01:20 BP 100/68 08/21/19 01:20 Pulse Ox 95 08/21/19 01:20 - Orders/Labs/Meds Orders: Active Orders 24 hr Category Date Time Status Heparin Sod,Pork In 0.45% Nacl [Heparin-1/2Ns 25,000 Med 08/20/19 23:00 Active Units/500] 25,000 unit in 500 ml IV TITRATE Medication Orders Heparin Sodium/Sodium Chloride (Heparin-1/2ns 25,000 Units/500) 25,000 unit in 500 mls @ 16.8 mls/hr IV TITRATE NANCIE; Protocol Last Admin: 08/20/19 23:04 Dose: 12 units/kg/hr, 16.8 mls/hr Labs: Laboratory Tests 08/20/19 08/20/19 08/20/19 Range/Units 00:01 22:00 22:00 WBC 16.92 H (4.0-11.0) K/uL RBC 5.19 (4.30-5.90) M/uL Hgb 14.2 (12.0-16.0) g/dL Hct 42.7 (36.0-46.0) % MCV 82.3 (80.0-98.0) fL MCH 27.4 (27.0-32.0) pg MCHC 33.3 (31.0-37.0) g/dL RDW Std Deviation 42.1 (28.0-62.0) fl RDW Coeff of Rozina 14 (11.0-15.0) % Plt Count 206 (150-400) K/uL MPV 11.30 (7.40-12.00) fL Neut % (Auto) 66.5 (48.0-80.0) % Lymph % (Auto) 21.7 (16.0-40.0) % [place] % (Auto) 11.1 (0.0-15.0) % Eos % (Auto) 0.5 (0.0-7.0) % Baso % (Auto) 0.2 (0.0-1.5) % Neut # (Auto) 11.2 H (1.4-5.7) K/uL Lymph # (Auto) 3.7 H (0.6-2.4) K/uL [place] # (Auto) 1.9 H (0.0-0.8) K/uL Eos # (Auto) 0.1 (0.0-0.7) K/uL Baso # (Auto) 0.0 (0.0-0.1) K/uL Nucleated RBC % 0.0 /100WBC Nucleated RBCs # 0 K/uL D-Dimer, Quantitative 0.44 (0.0-0.50) mg/L FEU Sodium 139 (136-145) mmol/L Potassium 4.1 (3.5-5.1) mmol/L Chloride 104 (98-107) mmol/L Carbon Dioxide 23.6 (21.0-32.0) mmol/L BUN 18 (7.0-18.0) mg/dL Creatinine 1.2 H (0.6-1.0) mg/dL Est Cr Clr Drug Dosing TNP Estimated GFR (MDRD) 44.3 ml/min Glucose 118 H (74-106) mg/dL Calcium 10.0 (8.5-10.1) mg/dL Total Bilirubin 0.8 (0.2-1.0) mg/dL AST 29 (15-37) IU/L ALT 25 (14-63) IU/L Alkaline Phosphatase 100 (46-116) U/L Troponin I 0.127 H* (0.000-0.056) ng/mL B-Natriuretic Peptide (<100) PG/ML Total Protein 7.5 (6.4-8.2) g/dL Albumin 3.6 (3.4-5.0) g/dL Globulin 3.9 (2.6-4.0) g/dL Albumin/Globulin Ratio 0.9 (0.9-1.6) 08/20/19 08/20/19 Range/Units 22:00 23:55 WBC (4.0-11.0) K/uL RBC (4.30-5.90) M/uL Hgb (12.0-16.0) g/dL Hct (36.0-46.0) % MCV (80.0-98.0) fL MCH (27.0-32.0) pg MCHC (31.0-37.0) g/dL RDW Std Deviation (28.0-62.0) fl RDW Coeff of Rozina (11.0-15.0) % Plt Count (150-400) K/uL MPV (7.40-12.00) fL Neut % (Auto) (48.0-80.0) % Lymph % (Auto) (16.0-40.0) % [place] % (Auto) (0.0-15.0) % Eos % (Auto) (0.0-7.0) % Baso % (Auto) (0.0-1.5) % Neut # (Auto) (1.4-5.7) K/uL Lymph # (Auto) (0.6-2.4) K/uL [place] # (Auto) (0.0-0.8) K/uL Eos # (Auto) (0.0-0.7) K/uL Baso # (Auto) (0.0-0.1) K/uL Nucleated RBC % /100WBC Nucleated RBCs # K/uL D-Dimer, Quantitative (0.0-0.50) mg/L FEU Sodium (136-145) mmol/L Potassium (3.5-5.1) mmol/L Chloride (98-107) mmol/L Carbon Dioxide (21.0-32.0) mmol/L BUN (7.0-18.0) mg/dL Creatinine (0.6-1.0) mg/dL Est Cr Clr Drug Dosing Estimated GFR (MDRD) ml/min Glucose (74-106) mg/dL Calcium (8.5-10.1) mg/dL Total Bilirubin (0.2-1.0) mg/dL AST (15-37) IU/L ALT (14-63) IU/L Alkaline Phosphatase (46-116) U/L Troponin I 0.116 H* (0.000-0.056) ng/mL B-Natriuretic Peptide 197 H (<100) PG/ML Total Protein (6.4-8.2) g/dL Albumin (3.4-5.0) g/dL Globulin (2.6-4.0) g/dL Albumin/Globulin Ratio (0.9-1.6) Meds: Medications Generic Name Dose Route Start Last Admin Trade Name Cher PRN Reason Stop Dose Admin Heparin Sodium/Sodium Chloride 25,000 unit in 500 mls @ 16.8 mls/hr 08/20/19 23:00 08/20/19 23:04 Heparin-1/2ns 25,000 Units/500 IV 12 units/kg/hr TITRATE NANCIE 16.8 mls/hr Administration Protocol 12 UNITS/KG/HR Discontinued Medications Generic Name Dose Route Start Last Admin Trade Name Cher PRN Reason Stop Dose Admin Acetaminophen 650 mg 08/21/19 01:17 08/21/19 01:24 Tylenol PO 08/21/19 01:18 650 mg NOW ONE Administration Aspirin 324 mg 08/20/19 22:51 08/20/19 23:00 Aspirin PO 08/20/19 22:52 324 mg ONETIME ONE Administration Clopidogrel Bisulfate 300 mg 08/20/19 22:51 08/20/19 23:01 Plavix PO 08/20/19 22:52 300 mg ONETIME ONE Administration Diltiazem HCl 10 mg 08/21/19 00:53 08/21/19 01:15 Diltiazem IVPUSH 08/21/19 00:54 10 mg ONETIME ONE Administration Morphine Sulfate 4 mg 08/21/19 00:30 08/21/19 00:38 Morphine IVPUSH 08/21/19 00:31 4 mg ONETIME ONE Administration Morphine Sulfate 4 mg 08/21/19 01:16 08/21/19 01:43 Morphine IVPUSH 08/21/19 01:17 Not Given ONETIME ONE Departure - Departure Time of Disposition: 01:00 Disposition: Refer to Observation Clinical Impression: Chest pain Atrial fibrillation Qualifiers: Atrial fibrillation type: unspecified Qualified Code(s): I48.91 - Unspecified atrial fibrillation Sepsis Event Note - Evaluation Sepsis Screening Result: No Definite Risk - Focused Exam Vital Signs: Vital Signs Temp Pulse Resp BP Pulse Ox 08/21/19 00:17 109/69 08/20/19 23:30 108 H 18 116/69 97 08/20/19 22:35 110 H 19 114/72 98 08/20/19 22:15 102 H 18 122/71 96 08/20/19 22:00 90 20 119/69 97 08/20/19 21:44 36.9 C 112 H 21 H 140/74 97 Date Exam was Performed: 08/21/19 Time Exam was Performed: 02:04 - My Orders Last 24 Hours: My Active Orders 08/20/19 23:00 Heparin Sod,Pork In 0.45% Nacl [Heparin-1/2Ns 25,000 Units/500] 25,000 unit in 500 ml IV TITRATE - Assessment/Plan Last 24 Hours: My Active Orders 08/20/19 23:00 Heparin Sod,Pork In 0.45% Nacl [Heparin-1/2Ns 25,000 Units/500] 25,000 unit in 500 ml IV TITRATE
[2019-08-20] MEDS ORDERED: Heparin Sod,Pork In 0.45% Nacl 25,000 UNIT/500 ML IV.SOLN IV SCH (23:00)
--- NOTE | 2019-08-20 23:00 | CR ---
INDICATION: Chest pain TECHNIQUE: Single view chest. FINDINGS: The lungs are clear. The heart, mediastinum and pulmonary vessels are of normal size. There is no evidence of pleural disease. IMPRESSION: Negative chest. Dictated by Christina Galvez MD @ Aug 20 2019 10:58PM Signed by Dr. Christina Galvez @ Aug 20 2019 10:59PM
[2019-08-21] MEDS ORDERED: Morphine 4 MG/ML Syringe IVPUSH ONE ×2 (00:30→01:16)
[2019-08-21] MEDS ORDERED: Diltiazem 25 MG/5 ML SDV IVPUSH ONE (00:53)
[2019-08-21] MEDS ORDERED: Acetaminophen 325 MG Tab PO ONE (01:17)
[2019-08-21] MEDS ORDERED: Morphine 2 MG/ML Syringe IVPUSH PRN (03:10)
[2019-08-21 05:16] LABS: CARBON DIOXIDE,CO2 24.8 mmol/L (21.0-32.0)
[2019-08-21] MEDS ORDERED: Diltiazem 120 MG Cap.CD PO SCH (09:15)
[2019-08-21] MEDS ORDERED: Metoprolol Tartrate 50 MG Tab PO SCH (09:15)
--- NOTE | 2019-08-21 09:22 | PCM.HP.2 ---
H&P History of Present Illness - General Date of Service: 08/21/19 Admit Problem/Dx: Admission Diagnosis/Problem Admission Diagnosis/Problem Chest pain - History of Present Illness Initial Comments - Free Text/Narative: 69 yo female with pmh of atrial fibrillation, RA who was four days ago presented to the [facility] with complaints of chest pain and shortness of breath. Her troponin was 2.0. She was transferred to [facility] and underwent an angiogram which did not show any significant coronary artery disease. She did have some evidence of stress induced cardiomyopathy with an ejection fraction that was diminished around 40%. Her diltiazem was discontinued and she was started on Toprol 50 mg daily to better control her heart rate. She requested to leave before and echocardiogram was performed. She presents today with same chest pain which she says has been intermittent since Thursday. She describes it as a band like across her chest that is made worse with breathing or movement. She denies any fevers, cough or recent travel. Discharge summary from [facility] reports a negative COVID-19 test. IN the ED her EKG showed atrial fibrillation iwht HR in 110s with t-wave inversions in V2 and V3 which were old. Troponin was noted to be downtrending at 0.116. She received plavix, ASA , and IV diltiazem. Her chest pain improved with IV morphine. chest Pain Score (Numeric/FACES): 5 - Related Data Allergies/Adverse Reactions: Allergies Allergy/AdvReac Type Severity Reaction Status Date / Time No Known Allergies Allergy Verified 08/21/19 02:44 Home Medications: Home Meds Adalimumab [Humira Pediatric Crohn's] 40 mg IM ASDIRECTED 04/17/17 [History] Apixaban [Eliquis] 5 mg PO BID 08/04/18 [History] Diltiazem [Cardizem CD] 120 mg PO DAILY 08/04/18 [History] Past Medical History HEENT History: Reports: Impaired Vision, Other (See Below) Other HEENT History: wears glasses Cardiovascular History: Reports: Afib, Hypertension Respiratory History: Reports: None Gastrointestinal History: Reports: None Genitourinary History: Reports: None [employer] History: Reports: Musculoskeletal History: Reports: RA Other Musculoskeletal History: right foot nodules Neurological History: Reports: None Psychiatric History: Reports: Anxiety, Depression Endocrine/Metabolic History: Reports: None Hematologic History: Reports: None Immunologic History: Reports: Other (See Below) Other Immunologic History: RA Oncologic (Cancer) History: Reports: Other (See Below) Other Oncologic History: "skin cancer" Dermatologic History: Reports: None - Infectious Disease History Infectious Disease History: Reports: Chicken Pox - Past Surgical History Head Surgeries/Procedures: Reports: None HEENT Surgical History: Reports: Tonsillectomy Cardiovascular Surgical History: Reports: None Respiratory Surgical History: Reports: None GI Surgical History: Reports: None Female Surgical History: Reports: None Endocrine Surgical History: Reports: None Neurological Surgical History: Reports: None Musculoskeletal Surgical History: Reports: Other (See Below) Other Musculoskeletal Surgeries/Procedures:: surgery to right foot. Left ankle fusion Oncologic Surgical History: Reports: None Dermatological Surgical History: Reports: None Social & Family History - Family History Family Medical History: Noncontributory - Tobacco Use Smoking Status *Q: Never Smoker Second Hand Smoke Exposure: No - Caffeine Use Caffeine Use: Reports: Coffee - Recreational Drug Use Recreational Drug Use: No H&P Review of Systems - Review of Systems: Review Of Systems: Comprehensive ROS is negative, except as noted in HPI. Exam - Exam Exam: See Below - Vital Signs Vital Signs: Last Vital Signs Temp 36.2 C 08/21/19 07:06 Pulse 101 H 08/21/19 07:06 Resp 18 08/21/19 07:06 BP 96/72 08/21/19 07:06 Pulse Ox 94 L 08/21/19 07:06 Weight: 69.853 kg - Exam General: Alert, Oriented HEENT: Mucosa Moist & [place] Neck: Supple Lungs: Clear to Auscultation, Normal Respiratory Effort Cardiovascular: Regular Rate, Regular Rhythm GI/Abdominal Exam: Soft, Non-Tender, No Distention Extremities: Non-Tender, No Pedal Edema Skin: Warm, Dry, Intact - Patient Data Lab Results Last 24 hrs: Laboratory Results - last 24 hr 08/20/19 08/20/19 08/20/19 Range/Units 00:01 22:00 22:00 WBC 16.92 H (4.0-11.0) K/uL RBC 5.19 (4.30-5.90) M/uL Hgb 14.2 (12.0-16.0) g/dL Hct 42.7 (36.0-46.0) % MCV 82.3 (80.0-98.0) fL MCH 27.4 (27.0-32.0) pg MCHC 33.3 (31.0-37.0) g/dL RDW Std Deviation 42.1 (28.0-62.0) fl RDW Coeff of Rozina 14 (11.0-15.0) % Plt Count 206 (150-400) K/uL MPV 11.30 (7.40-12.00) fL Neut % (Auto) 66.5 (48.0-80.0) % Lymph % (Auto) 21.7 (16.0-40.0) % [place] % (Auto) 11.1 (0.0-15.0) % Eos % (Auto) 0.5 (0.0-7.0) % Baso % (Auto) 0.2 (0.0-1.5) % Neut # (Auto) 11.2 H (1.4-5.7) K/uL Lymph # (Auto) 3.7 H (0.6-2.4) K/uL [place] # (Auto) 1.9 H (0.0-0.8) K/uL Eos # (Auto) 0.1 (0.0-0.7) K/uL Baso # (Auto) 0.0 (0.0-0.1) K/uL Nucleated RBC % 0.0 /100WBC Nucleated RBCs # 0 K/uL D-Dimer, Quantitative 0.44 (0.0-0.50) mg/L FEU Sodium 139 (136-145) mmol/L Potassium 4.1 (3.5-5.1) mmol/L Chloride 104 (98-107) mmol/L Carbon Dioxide 23.6 (21.0-32.0) mmol/L BUN 18 (7.0-18.0) mg/dL Creatinine 1.2 H (0.6-1.0) mg/dL Est Cr Clr Drug Dosing TNP Estimated GFR (MDRD) 44.3 ml/min Glucose 118 H (74-106) mg/dL Calcium 10.0 (8.5-10.1) mg/dL Total Bilirubin 0.8 (0.2-1.0) mg/dL AST 29 (15-37) IU/L ALT 25 (14-63) IU/L Alkaline Phosphatase 100 (46-116) U/L Troponin I 0.127 H* (0.000-0.056) ng/mL B-Natriuretic Peptide (<100) PG/ML Total Protein 7.5 (6.4-8.2) g/dL Albumin 3.6 (3.4-5.0) g/dL Globulin 3.9 (2.6-4.0) g/dL Albumin/Globulin Ratio 0.9 (0.9-1.6) 08/20/19 08/20/19 08/21/19 Range/Units 22:00 23:55 04:48 WBC (4.0-11.0) K/uL RBC (4.30-5.90) M/uL Hgb (12.0-16.0) g/dL Hct (36.0-46.0) % MCV (80.0-98.0) fL MCH (27.0-32.0) pg MCHC (31.0-37.0) g/dL RDW Std Deviation (28.0-62.0) fl RDW Coeff of Rozina (11.0-15.0) % Plt Count (150-400) K/uL MPV (7.40-12.00) fL Neut % (Auto) (48.0-80.0) % Lymph % (Auto) (16.0-40.0) % [place] % (Auto) (0.0-15.0) % Eos % (Auto) (0.0-7.0) % Baso % (Auto) (0.0-1.5) % Neut # (Auto) (1.4-5.7) K/uL Lymph # (Auto) (0.6-2.4) K/uL [place] # (Auto) (0.0-0.8) K/uL Eos # (Auto) (0.0-0.7) K/uL Baso # (Auto) (0.0-0.1) K/uL Nucleated RBC % /100WBC Nucleated RBCs # K/uL D-Dimer, Quantitative (0.0-0.50) mg/L FEU Sodium 142 (136-145) mmol/L Potassium 4.0 (3.5-5.1) mmol/L Chloride 106 (98-107) mmol/L Carbon Dioxide 24.8 (21.0-32.0) mmol/L BUN 18 (7.0-18.0) mg/dL Creatinine 1.1 H (0.6-1.0) mg/dL Est Cr Clr Drug Dosing 35.40 Estimated GFR (MDRD) 49.0 ml/min Glucose 121 H (74-106) mg/dL Calcium 9.1 (8.5-10.1) mg/dL Total Bilirubin (0.2-1.0) mg/dL AST (15-37) IU/L ALT (14-63) IU/L Alkaline Phosphatase (46-116) U/L Troponin I 0.116 H* 0.081 H* (0.000-0.056) ng/mL B-Natriuretic Peptide 197 H (<100) PG/ML Total Protein (6.4-8.2) g/dL Albumin (3.4-5.0) g/dL Globulin (2.6-4.0) g/dL Albumin/Globulin Ratio (0.9-1.6) 08/21/19 Range/Units 04:48 WBC 14.84 H (4.0-11.0) K/uL RBC 4.84 (4.30-5.90) M/uL Hgb 13.1 (12.0-16.0) g/dL Hct 40.4 (36.0-46.0) % MCV 83.5 (80.0-98.0) fL MCH 27.1 (27.0-32.0) pg MCHC 32.4 (31.0-37.0) g/dL RDW Std Deviation 43.2 (28.0-62.0) fl RDW Coeff of Rozina 14 (11.0-15.0) % Plt Count 178 (150-400) K/uL MPV 11.00 (7.40-12.00) fL Neut % (Auto) 78.1 (48.0-80.0) % Lymph % (Auto) 9.8 L (16.0-40.0) % [place] % (Auto) 11.6 (0.0-15.0) % Eos % (Auto) 0.3 (0.0-7.0) % Baso % (Auto) 0.2 (0.0-1.5) % Neut # (Auto) 11.6 H (1.4-5.7) K/uL Lymph # (Auto) 1.5 (0.6-2.4) K/uL [place] # (Auto) 1.7 H (0.0-0.8) K/uL Eos # (Auto) 0.1 (0.0-0.7) K/uL Baso # (Auto) 0.0 (0.0-0.1) K/uL Nucleated RBC % 0.0 /100WBC Nucleated RBCs # 0 K/uL D-Dimer, Quantitative (0.0-0.50) mg/L FEU Sodium (136-145) mmol/L Potassium (3.5-5.1) mmol/L Chloride (98-107) mmol/L Carbon Dioxide (21.0-32.0) mmol/L BUN (7.0-18.0) mg/dL Creatinine (0.6-1.0) mg/dL Est Cr Clr Drug Dosing Estimated GFR (MDRD) ml/min Glucose (74-106) mg/dL Calcium (8.5-10.1) mg/dL Total Bilirubin (0.2-1.0) mg/dL AST (15-37) IU/L ALT (14-63) IU/L Alkaline Phosphatase (46-116) U/L Troponin I (0.000-0.056) ng/mL B-Natriuretic Peptide (<100) PG/ML Total Protein (6.4-8.2) g/dL Albumin (3.4-5.0) g/dL Globulin (2.6-4.0) g/dL Albumin/Globulin Ratio (0.9-1.6) Result Diagrams: 08/21/19 04:48 08/21/19 04:48 Sepsis Event Note - Evaluation Sepsis Screening Result: No Definite Risk - Focused Exam Vital Signs: Vital Signs Temp Pulse Resp BP Pulse Ox 08/21/19 07:06 36.2 C 101 H 18 96/72 94 L 08/21/19 02:30 36.2 C 96 18 107/70 96 08/21/19 01:20 36.6 C 88 18 100/68 95 08/21/19 00:17 109/69 03/28/20 23:30 108 H 18 116/69 97 08/20/19 22:35 110 H 19 114/72 98 08/20/19 22:15 102 H 18 122/71 96 08/20/19 22:00 90 20 119/69 97 08/20/19 21:44 36.9 C 112 H 21 H 140/74 97 Date Exam was Performed: 08/21/19 Time Exam was Performed: 09:11 Problem List Initiated/Reviewed/Updated: Yes Orders Last 24hrs: Active Orders 24 hr Category Date Time Status Admission Status [Patient Status] [ADT] Stat ADT 08/21/19 01:11 Active Antiembolic Devices [RC] PER UNIT ROUTINE Care 08/21/19 09:09 Ordered EKG 12 Lead [EKG Documentation Completion] [RC] ROUTINE Care 08/21/19 08:00 Active Oxygen Therapy [RC] PRN Care 08/21/19 09:09 Ordered Telemetry Monitoring [Cardiac Monitoring] [RC] Q8H Care 08/21/19 03:06 Active Up ad Mechelle [RC] ASDIRECTED Care 08/21/19 09:09 Ordered VTE/DVT Education [RC] PER UNIT ROUTINE Care 08/21/19 09:09 Ordered Vital Signs [RC] Q4H Care 08/21/19 03:06 Active Vital Signs [RC] Q4H Care 08/21/19 09:09 Ordered Cardiac [Heart Healthy Diet] [DIET] Diet 08/21/19 Breakfast Active BASIC METABOLIC PANEL,BMP [CHEM] AM Lab 08/22/19 05:11 Ordered CBC WITH AUTO DIFF [HEME] AM Lab 08/22/19 05:11 Ordered TROPONIN I [CHEM] Q6H Lab 08/21/19 11:00 Ordered Apixaban [Eliquis] Med 08/21/19 09:15 Ordered 5 mg PO BID Diltiazem [Cardizem CD] Med 08/21/19 09:15 Ordered 120 mg PO DAILY Heparin Sod,Pork In 0.45% Nacl [Heparin-1/2Ns 25,000 Med 08/20/19 23:00 Active Units/500] 25,000 unit in 500 ml IV TITRATE Metoprolol Tartrate [Lopressor] Med 08/21/19 09:15 Ordered 50 mg PO Q12H Morphine Med 08/21/19 03:10 Active 2 mg IVPUSH Q4H PRN Sequential Compression Device [OM.PC] Per Unit Routine Oth 08/21/19 09:09 Ordered Resuscitation Status Routine Resus Stat 08/21/19 09:09 Ordered Medication Orders Apixaban (Eliquis) 5 mg PO BID NANCIE Diltiazem HCl (Cardizem Cd) 120 mg PO DAILY NANCIE Heparin Sodium/Sodium Chloride (Heparin-1/2ns 25,000 Units/500) 25,000 unit in 500 mls @ 16.8 mls/hr IV TITRATE NANCIE; Protocol Last Admin: 08/20/19 23:04 Dose: 12 units/kg/hr, 16.8 mls/hr Metoprolol Tartrate (Lopressor) 50 mg PO Q12H NANCIE Morphine Sulfate (Morphine) 2 mg IVPUSH Q4H PRN PRN Reason: Pain Assessment/Plan Comment:: 69 yo female with pmh of RA, atrial fibrillation, chronic anticoagulation, stress induced cardiomyopathy, and recent NSTEMI who presents with recurrent chest pain. We will continue to observe to insure troponin continue to resolve. We will monitor heart rate and adjust medications as need for rate control. Echocardiogram has been ordered.
[2019-08-21] MEDS: Docusate Sodium 100 MG Cap PO PRN (09:45)
[2019-08-21] MEDS: Apixaban 2.5 MG Tab PO SCH ×2 (09:46→21:00)
[2019-08-21] MEDS: Metoprolol Tartrate 25 MG Tab PO SCH ×2 (09:46→21:00)
[2019-08-21] MEDS ORDERED: Metoprolol Tartrate 50 MG Tab PO ONE (12:07)
[2019-08-21] MEDS ORDERED: Ondansetron 4 MG/2 ML SDV IVPUSH PRN (14:34)
[2019-08-21] MEDS ORDERED: Pantoprazole 40 MG in Sodium Chloride 0.9% 10 ML IV ONE (14:35)
[2019-08-21] MEDS ORDERED: Acetaminophen 325 MG Tab PO PRN (21:51)
[2019-08-21] MEDS ORDERED: Metoprolol Tartrate 25 MG Tab PO ONE (23:14)
[2019-08-21] MEDS ORDERED: Diltiazem 25 MG/5 ML SDV IVPUSH PRN (23:14)
[2019-08-22 06:46] LABS: BLOOD UREA NITROGEN,BUN 14 mg/dL (7.0-18.0); CARBON DIOXIDE,CO2 23.2 mmol/L (21.0-32.0); CHLORIDE,CL 105 mmol/L (98-107); GLUCOSE RANDOM 106 mg/dL (74-106); POTASSIUM,K 4.1 mmol/L (3.5-5.1); SODIUM,NA 139 mmol/L (136-145)
[2019-08-22] MEDS: Metoprolol Tartrate 25 MG Tab PO SCH (08:16)
[2019-08-22] MEDS: Apixaban 2.5 MG Tab PO SCH ×2 (08:16→21:32)
[2019-08-22] MEDS ORDERED: Metoprolol Tartrate 25 MG Tab PO SCH ×2 (09:00→21:00)
[2019-08-22] MEDS ORDERED: Metoprolol Tartrate 25 MG Tab PO ONE (09:06)
[2019-08-22] MEDS: Docusate Sodium 100 MG Cap PO PRN (09:45)
[2019-08-22] MEDS ORDERED: Bisacodyl 10 MG Supp RECTAL PRN (09:49)
--- NOTE | 2019-08-22 10:31 | PCM.PN ---
- General Info Date of Service: 08/22/19 Admission Dx/Problem (Free Text): Admission Diagnosis/Problem Admission Diagnosis/Problem Chest pain/ Atrial fibrillation Subjective Update: Reports intermittent chest pain. No shortness of breath. Reports scratchy throat and constipation. Functional Status: Reports: Pain Controlled, Tolerating Diet, Ambulating, Urinating - Review of Systems General: Reports: No Symptoms. Denies: Weakness, Fatigue, Malaise HEENT: Reports: No Symptoms. Denies: Headaches, Sore Throat Pulmonary: Reports: No Symptoms. Denies: Shortness of Breath Cardiovascular: Reports: Chest Pain (intermittent) Gastrointestinal: Reports: No Symptoms. Denies: Abdominal Pain, Nausea Genitourinary: Reports: No Symptoms. Denies: Dysuria, Frequency Skin: Reports: No Symptoms Neurological: Reports: No Symptoms Psychiatric: Reports: No Symptoms - Patient Data Vitals - Most Recent: Last Vital Signs Temp 98.1 F 08/22/19 08:00 Pulse 118 H 08/22/19 09:31 Resp 18 08/22/19 08:00 BP 114/65 08/22/19 09:31 Pulse Ox 94 L 08/22/19 09:09 Weight - Most Recent: 69.853 kg I&O - Last 24 Hours: Intake & Output 08/21/19 08/22/19 08/22/19 22:59 06:59 14:59 Intake Total 600 450 120 Output Total 300 325 Balance 300 125 120 Lab Results Last 24 Hours: Laboratory Results - last 24 hr 08/21/19 08/22/19 08/22/19 Range/Units 11:40 06:00 06:00 WBC 14.95 H (4.0-11.0) K/uL RBC 4.89 (4.30-5.90) M/uL Hgb 13.3 (12.0-16.0) g/dL Hct 41.1 (36.0-46.0) % MCV 84.0 (80.0-98.0) fL MCH 27.2 (27.0-32.0) pg MCHC 32.4 (31.0-37.0) g/dL RDW Std Deviation 44.1 (28.0-62.0) fl RDW Coeff of Rozina 14 (11.0-15.0) % Plt Count 187 (150-400) K/uL MPV 11.30 (7.40-12.00) fL Neut % (Auto) 68.7 (48.0-80.0) % Lymph % (Auto) 14.9 L (16.0-40.0) % [place] % (Auto) 14.9 (0.0-15.0) % Eos % (Auto) 1.3 (0.0-7.0) % Baso % (Auto) 0.2 (0.0-1.5) % Neut # (Auto) 10.3 H (1.4-5.7) K/uL Lymph # (Auto) 2.2 (0.6-2.4) K/uL [place] # (Auto) 2.2 H (0.0-0.8) K/uL Eos # (Auto) 0.2 (0.0-0.7) K/uL Baso # (Auto) 0.0 (0.0-0.1) K/uL Nucleated RBC % 0.0 /100WBC Nucleated RBCs # 0 K/uL Sodium 139 (136-145) mmol/L Potassium 4.1 (3.5-5.1) mmol/L Chloride 105 (98-107) mmol/L Carbon Dioxide 23.2 (21.0-32.0) mmol/L BUN 14 (7.0-18.0) mg/dL Creatinine 1.1 H (0.6-1.0) mg/dL Est Cr Clr Drug Dosing 35.40 mL/min Estimated GFR (MDRD) 49.0 ml/min Glucose 106 (74-106) mg/dL Calcium 9.3 (8.5-10.1) mg/dL Magnesium (1.8-2.4) mg/dL Troponin I < 0.050 < 0.050 (0.000-0.056) ng/mL 08/22/19 Range/Units 06:00 WBC (4.0-11.0) K/uL RBC (4.30-5.90) M/uL Hgb (12.0-16.0) g/dL Hct (36.0-46.0) % MCV (80.0-98.0) fL MCH (27.0-32.0) pg MCHC (31.0-37.0) g/dL RDW Std Deviation (28.0-62.0) fl RDW Coeff of [place] (11.0-15.0) % Plt Count (150-400) K/uL MPV (7.40-12.00) fL Neut % (Auto) (48.0-80.0) % Lymph % (Auto) (16.0-40.0) % [place] % (Auto) (0.0-15.0) % Eos % (Auto) (0.0-7.0) % Baso % (Auto) (0.0-1.5) % Neut # (Auto) (1.4-5.7) K/uL Lymph # (Auto) (0.6-2.4) K/uL [place] # (Auto) (0.0-0.8) K/uL Eos # (Auto) (0.0-0.7) K/uL Baso # (Auto) (0.0-0.1) K/uL Nucleated RBC % /100WBC Nucleated RBCs # K/uL Sodium (136-145) mmol/L Potassium (3.5-5.1) mmol/L Chloride (98-107) mmol/L Carbon Dioxide (21.0-32.0) mmol/L BUN (7.0-18.0) mg/dL Creatinine (0.6-1.0) mg/dL Est Cr Clr Drug Dosing mL/min Estimated GFR (MDRD) ml/min Glucose (74-106) mg/dL Calcium (8.5-10.1) mg/dL Magnesium 2.0 (1.8-2.4) mg/dL Troponin I (0.000-0.056) ng/mL Med Orders - Current: Current Medications Acetaminophen (Tylenol) 650 mg PO Q4H PRN PRN Reason: Headache Last Admin: 08/21/19 22:07 Dose: 650 mg Apixaban (Eliquis) 5 mg PO BID NANCIE Last Admin: 08/22/19 08:16 Dose: 5 mg Benzocaine/Menthol (Cepacol Sore Throat) 1 lozenge MUCMEM Q2H PRN PRN Reason: Sore Throat Bisacodyl (Dulcolax) 10 mg RECTAL DAILY PRN PRN Reason: Constipation Diltiazem HCl (Diltiazem) 10 mg IVPUSH Q3H PRN PRN Reason: HR above 100 Last Admin: 08/22/19 04:45 Dose: 10 mg Docusate Sodium (Colace) 100 mg PO DAILY PRN PRN Reason: Constipation Last Admin: 08/22/19 09:45 Dose: 100 mg Metoprolol Tartrate (Lopressor) 50 mg PO Q12H NANCIE Morphine Sulfate (Morphine) 2 mg IVPUSH Q4H PRN PRN Reason: Pain Last Admin: 08/21/19 16:03 Dose: 2 mg Ondansetron HCl (Zofran) 4 mg IVPUSH Q4H PRN PRN Reason: Nausea/Vomiting Last Admin: 08/21/19 14:58 Dose: 4 mg Discontinued Medications Acetaminophen (Tylenol) 650 mg PO NOW ONE Stop: 08/21/19 01:18 Last Admin: 08/21/19 01:24 Dose: 650 mg Aspirin (Aspirin) 324 mg PO ONETIME ONE Stop: 08/20/19 22:52 Last Admin: 08/20/19 23:00 Dose: 324 mg Clopidogrel Bisulfate (Plavix) 300 mg PO ONETIME ONE Stop: 08/20/19 22:52 Last Admin: 08/20/19 23:01 Dose: 300 mg Diltiazem HCl (Diltiazem) 10 mg IVPUSH ONETIME ONE Stop: 08/21/19 00:54 Last Admin: 08/21/19 01:15 Dose: 10 mg Diltiazem HCl (Cardizem Cd) 120 mg PO DAILY NANCIE Heparin Sodium/Sodium Chloride (Heparin-1/2ns 25,000 Units/500) 25,000 unit in 500 mls @ 16.8 mls/hr IV TITRATE NANCIE; Protocol Last Admin: 08/20/19 23:04 Dose: 12 units/kg/hr, 16.8 mls/hr Pantoprazole Sodium 40 mg/ (Sodium Chloride) 10 mls @ 300 mls/hr IV ONETIME ONE Stop: 08/22/19 14:36 Pantoprazole Sodium 40 mg/ (Sodium Chloride) 10 mls @ 300 mls/hr IV ONETIME ONE Stop: 08/21/19 14:36 Last Admin: 08/21/19 14:58 Dose: 300 mls/hr Metoprolol Tartrate (Lopressor) 50 mg PO Q12H NANCIE Metoprolol Tartrate (Lopressor) 25 mg PO Q12H [facility] Last Admin: 08/22/19 08:16 Dose: 25 mg Metoprolol Tartrate (Lopressor) 50 mg PO ONETIME ONE Stop: 08/21/19 12:08 Last Admin: 08/21/19 12:20 Dose: 50 mg Metoprolol Tartrate (Lopressor) 25 mg PO ONETIME ONE Stop: 08/21/19 23:15 Last Admin: 08/21/19 23:40 Dose: 25 mg Metoprolol Tartrate (Lopressor) 50 mg PO Q12H [facility] Last Admin: 08/22/19 10:21 Dose: Not Given Metoprolol Tartrate (Lopressor) 25 mg PO ONETIME ONE Stop: 08/22/19 09:07 Last Admin: 08/22/19 09:31 Dose: 25 mg Morphine Sulfate (Morphine) 4 mg IVPUSH ONETIME ONE Stop: 08/21/19 00:31 Last Admin: 08/21/19 00:38 Dose: 4 mg Morphine Sulfate (Morphine) 4 mg IVPUSH ONETIME ONE Stop: 08/21/19 01:17 Last Admin: 08/21/19 01:43 Dose: Not Given - Exam General: Alert, Oriented, Cooperative, No Acute Distress Lungs: Normal Respiratory Effort, Crackles (fine bibasilar) Cardiovascular: Irregular Rhythm, Tachycardia GI/Abdominal Exam: Normal Bowel Sounds, Soft, Non-Tender Back Exam: Normal Inspection, Full Range of Motion Extremities: Normal Inspection, Normal Range of Motion, Non-Tender, No Pedal Edema Psy/Mental Status: Alert, Normal Affect, Normal Mood Sepsis Event Note - Evaluation Sepsis Screening Result: No Definite Risk - Focused Exam Vital Signs: Vital Signs Temp Pulse Pulse Resp BP BP Pulse Ox 08/22/19 09:31 118 H 114/65 08/22/19 09:09 08/22/19 08:16 120 H 117/77 08/22/19 08:00 98.1 F 118 H 18 112/68 94 L 08/22/19 04:53 97.9 F 110 H 18 109/71 92 L 08/21/19 23:42 98.7 F 120 H 17 114/77 93 L 08/21/19 23:40 120 H 114/77 Pulse Ox 08/22/19 09:31 08/22/19 09:09 94 L 08/22/19 08:16 08/22/19 08:00 08/22/19 04:53 08/21/19 23:42 08/21/19 23:40 Date Exam was Performed: 08/22/19 Time Exam was Performed: 13:21 - Problem List & Annotations (1) Atrial fibrillation SNOMED Code(s): 17708260 Code(s): I48.91 - UNSPECIFIED ATRIAL FIBRILLATION Status: Acute Current Visit: Yes Qualifiers: Atrial fibrillation type: unspecified Qualified Code(s): I48.91 - Unspecified atrial fibrillation (2) Chest pain SNOMED Code(s): 30967915 Code(s): R07.9 - CHEST PAIN, UNSPECIFIED Status: Acute Current Visit: Yes (3) Rheumatoid arthritis SNOMED Code(s): 01138523 Code(s): M06.9 - RHEUMATOID ARTHRITIS, UNSPECIFIED Status: Acute Current Visit: Yes (4) HLD (hyperlipidemia) SNOMED Code(s): 08523741 Code(s): E78.5 - HYPERLIPIDEMIA, UNSPECIFIED Status: Acute Current Visit : Yes - Problem List Review Problem List Initiated/Reviewed/Updated: Yes - My Orders Last 24 Hours: My Active Orders 08/22/19 09:49 Benzocaine/Cetylpyrd/Menthol [Cepacol Sore Throat] 1 lozenge MUCMEM Q2H PRN bisacodyL [Dulcolax] 10 mg RECTAL DAILY PRN 08/22/19 21:00 Metoprolol Tartrate [Lopressor] 50 mg PO Q12H - Plan Plan:: 69 yo female with pmh of RA, atrial fibrillation, chronic anticoagulation, stress induced cardiomyopathy, and recent NSTEMI 1. Chest pain/Afib - Consult Dr Rubio - Troponins normal now, likely elevated due to ischemic demand from uncontrolled Afib. - Recently treated for NSTEMI in [place], heart cath showed no significant CAD but did show stress induced cardiomyopathy with EF diminished near 40%. - ECHO pending here, Dr Rubio to evaluate - Increased Metoprolol to 50 mg Q6h. - Mag and K albertina, will monitor daily - Consider starting Digoxin tomorrow if HR still 120s, discuss with Dr Rubio tomorrow. - CTA of chest done August 16 in [place], no PE, but suggestive of pulmonary congestion - CT of chest wo contrast today to evaluate for congestion, CXR shows possible congestion. CT reveals small pericardial effusion and bibasilar small pleural effusions. Atelectasis as well. - COVID-19 negative in [place]. - Continue Eliquis 5 mg BID 2. HTN: - Hold Lisinopril for now, BP softer with increase in beta sangeetha VTE prophylaxis: Eliquis Diet: Heart healthy Dispo: 1-2 days, pending HR control
[2019-08-22] MEDS: Benzocaine/Cetylpyridinium/Menthol Lozenge MUCMEM PRN ×2 (10:40→21:31)
--- NOTE | 2019-08-22 13:02 | CT ---
CT chest Technique: Multiple axial sections through the chest were obtained. Intravenous contrast was not utilized. Comparison: No prior chest imaging is available. Findings: Small lymph nodes are seen within the mediastinum which are most likely within normal limits. Aorta shows no aneurysm. Slight pericardial thickening is seen which is felt compatible with small pericardial effusion. Small left-sided pleural effusion and smaller right-sided pleural effusions are seen. Visualized upper abdominal structures shows a cyst within the left lower lobe measuring 2.0 cm. Atelectasis is noted within both lung bases upper lungs are clear. Bone window settings were reviewed which shows mild anterior wedge deformity within the mid thoracic spine which is likely old. Diffuse disc space narrowing within the spine with scattered endplate osteophytes are seen. No acute osseous finding is seen. Impression: 1. Small pericardial effusion. Small bilateral pleural effusions. 2. Bibasilar atelectasis. 3. Other findings believed to be incidental. Nothing acute is otherwise seen. Diagnostic code #3 This report was dictated in MDT
[2019-08-22] MEDS ORDERED: Furosemide 40 MG/4 ML VIAL IVPUSH ONE (13:56)
[2019-08-22] MEDS ORDERED: Metoprolol Tartrate 50 MG Tab PO SCH (14:00)
[2019-08-22] MEDS: Metoprolol Tartrate 50 MG Tab PO SCH ×2 (14:26→21:14)
[2019-08-22] MEDS ORDERED: Pantoprazole 40 MG in Sodium Chloride 0.9% 10 ML IV ONE (14:35)
[2019-08-22] MEDS: Digoxin 500 MCG/2 ML Amp IVPUSH SCH ×3 (18:19→22:44)
[2019-08-23] MEDS: Metoprolol Tartrate 50 MG Tab PO SCH ×2 (02:33→08:56)
[2019-08-23 06:28] LABS: CARBON DIOXIDE,CO2 22.6 mmol/L (21.0-32.0); POTASSIUM,K 4.3 mmol/L (3.5-5.1)
[2019-08-23] MEDS: Apixaban 2.5 MG Tab PO SCH ×2 (09:17→21:03)
[2019-08-23] MEDS: Metoprolol Succinate 100 MG Tab.ER PO SCH (09:17)
[2019-08-23] MEDS: Digoxin 250 MCG Tab PO SCH (09:18)
--- NOTE | 2019-08-23 12:49 | CONS ---
DATE OF CONSULTATION: DATE OF : 1950 PRIMARY CARE PHYSICIAN: None PCP REASON FOR CONSULTATION: AFib with RVR. HISTORY OF PRESENT ILLNESS: This is a 69-year-old female who has a history of paroxysmal atrial fibrillation, hypertension, rheumatoid arthritis, hyperlipidemia, nonsmoker. I have seen her in the office for the atrial fibrillation management. At that time, she was started on diltiazem 240 once a day as well as the Eliquis twice a day including aspirin. She was admitted in the hospital twice this month for the chest pain. The first time was on August 17, 2019. At that time, she was found to have troponin elevation. It was up to 2.[address] elevation, and then she was transferred to [place]. She ended up having the coronary angiogram done and it showed nonobstructive CAD. She was discharged home with metoprolol 25 twice a day as well as Eliquis. She also was found to have on LV gram an LV ejection of 40%, and then 3 days later, she presented to the hospital again with chest pain and atrial fibrillation with RVR. Yesterday, she was given metoprolol 50 twice a day; however, her heart rate still in 110-120 and sometimes going up to like 130. The blood pressure was borderline 110-120 as well. She has been on the Eliquis since. She said that her compliance with the Eliquis is probably close to 100%, maybe at a time when she was in [place], she may not get the doses, but she was not sure. Her troponin at this time is coming down to 0.1 and is trending down to become negative later on. She was also noted to have bilateral as well, possibly pulmonary edema versus interstitial pneumonia. She was tested for COVID-19, which is negative. Her BNP was also elevated at this time, it is 197. PAST MEDICAL HISTORY: Including hypertension, paroxysmal atrial fibrillation, hyperlipidemia, rheumatoid arthritis. ALLERGIES: No known drug allergies. FAMILY HISTORY: No known family history of a member who has CAD. CURRENT MEDICATIONS: 1. Metoprolol 50 twice a day. 2. Eliquis. 3. Diltiazem was started earlier, however, due to LV ejection fraction of 40%, it was discontinued. PHYSICAL EXAMINATION: VITAL SIGNS: The heart rate ranging between 110 to 130 and blood pressure ranging between 110 to 120 over 60 to 70, and the temperature was 96.5 to 98.1, O2 saturation is 93% to 94% on room air, respiration rate is 18. HEENT: Not pale. No jaundice. NECK: Likely positive JVD. HEART: Totally irregular. No murmur. LUNGS: Some crackles bilaterally. ABDOMEN: Soft, nontender. Bowel sounds are present. No hepatosplenomegaly, LEGS: No edema. EKG in July 2019 showed atrial fibrillation, heart rate of 110. Echocardiogram in July 2019, ejection fraction possibly 55% to 60% CBC showed WBC 15, hematocrit of 43, hemoglobin of 14, platelets 240. Creatinine is 1.1. Sodium 130, potassium 4.3, chloride 104, bicarb 22, BUN 16. Troponin was back down to normal. BNP 197. ASSESSMENT AND PLAN: This is a 69-year-old female who has had persistent atrial fibrillation in both lungs and with atrial fibrillation with rapid ventricular response. Coronary angiogram was performed in [place]. It did not show any significant coronary artery disease, however, it was noted possibly apical ballooning, stress-induced cardiomyopathy. She stated that she has some increasing stress level lately regarding her unemployment of her as well as the coronavirus concern. I would increase the metoprolol to 50 mg q.6 hours along with digoxin IV. Continue the Eliquis for now. Her CHADS-VASc score is 4 including gender, hypertension, heart failure, and age, at least 5. She should continue the Eliquis. JOSE BRENNER /[id number]
[2019-08-23] MEDS: Diltiazem 120 MG Cap.CD PO SCH (13:06)
--- NOTE | 2019-08-23 14:13 | PCM.PN ---
- General Info Date of Service: 08/23/19 Admission Dx/Problem (Free Text): Admission Diagnosis/Problem Admission Diagnosis/Problem Chest pain/ Atrial fibrillation Subjective Update: Feeling ok today, intermittent chest pain. No dyspnea. Asking about discharge home. Functional Status: Reports: Pain Controlled, Tolerating Diet, Ambulating, Urinating - Review of Systems General: Reports: No Symptoms. Denies: Weakness, Fatigue Pulmonary: Reports: No Symptoms. Denies: Shortness of Breath Cardiovascular: Reports: No Symptoms. Denies: Chest Pain Gastrointestinal: Reports: No Symptoms. Denies: Abdominal Pain, Nausea, Vomiting Genitourinary: Reports: No Symptoms. Denies: Dysuria, Frequency, Burning Skin: Reports: No Symptoms Neurological: Reports: No Symptoms Psychiatric: Reports: No Symptoms - Patient Data Vitals - Most Recent: Last Vital Signs Temp 96.5 F L 08/23/19 08:00 Pulse 101 H 08/23/19 13:06 Resp 18 08/23/19 08:00 BP 122/85 08/23/19 13:06 Pulse Ox 94 L 08/23/19 09:00 Weight - Most Recent: 69.853 kg I&O - Last 24 Hours: Intake & Output 08/22/19 08/23/19 08/23/19 22:59 06:59 14:59 Intake Total 500 Output Total 600 Balance -100 Lab Results Last 24 Hours: Laboratory Results - last 24 hr 08/23/19 08/23/19 Range/Units 05:55 05:55 WBC 15.69 H (4.0-11.0) K/uL RBC 5.19 (4.30-5.90) M/uL Hgb 14.2 (12.0-16.0) g/dL Hct 43.2 (36.0-46.0) % MCV 83.2 (80.0-98.0) fL MCH 27.4 (27.0-32.0) pg MCHC 32.9 (31.0-37.0) g/dL RDW Std Deviation 43.4 (28.0-62.0) fl RDW Coeff of [place] 14 (11.0-15.0) % Plt Count 240 (150-400) K/uL MPV 11.10 (7.40-12.00) fL Neut % (Auto) 63.9 (48.0-80.0) % Lymph % (Auto) 22.1 (16.0-40.0) % [place] % (Auto) 12.9 (0.0-15.0) % Eos % (Auto) 0.8 (0.0-7.0) % Baso % (Auto) 0.3 (0.0-1.5) % Neut # (Auto) 10.0 H (1.4-5.7) K/uL Lymph # (Auto) 3.5 H (0.6-2.4) K/uL [place] # (Auto) 2.0 H (0.0-0.8) K/uL Eos # (Auto) 0.1 (0.0-0.7) K/uL Baso # (Auto) 0.1 (0.0-0.1) K/uL Nucleated RBC % 0.0 /100WBC Nucleated RBCs # 0 K/uL Sodium 139 (136-145) mmol/L Potassium 4.3 (3.5-5.1) mmol/L Chloride 104 (98-107) mmol/L Carbon Dioxide 22.6 (21.0-32.0) mmol/L BUN 16 (7.0-18.0) mg/dL Creatinine 1.1 H (0.6-1.0) mg/dL Est Cr Clr Drug Dosing 35.40 mL/min Estimated GFR (MDRD) 49.0 ml/min Glucose 119 H (74-106) mg/dL Calcium 9.2 (8.5-10.1) mg/dL Magnesium 2.0 (1.8-2.4) mg/dL Med Orders - Current: Current Medications Acetaminophen (Tylenol) 650 mg PO Q4H PRN PRN Reason: Headache Last Admin: 08/21/19 22:07 Dose: 650 mg Apixaban (Eliquis) 5 mg PO BID NANCIE Last Admin: 08/23/19 09:17 Dose: 5 mg Benzocaine/Menthol (Cepacol Sore Throat) 1 lozenge MUCMEM Q2H PRN PRN Reason: Sore Throat Last Admin: 08/22/19 21:31 Dose: 1 lozenge Bisacodyl (Dulcolax) 10 mg RECTAL DAILY PRN PRN Reason: Constipation Last Admin: 08/22/19 10:40 Dose: 10 mg Digoxin (Lanoxin) 250 mcg PO DAILY REPLACED BY [facility] Last Admin: 08/23/19 09:18 Dose: 250 mcg Diltiazem HCl (Cardizem Cd) 120 mg PO DAILY REPLACED BY [facility] Last Admin: 08/23/19 13:06 Dose: 120 mg Docusate Sodium (Colace) 100 mg PO DAILY PRN PRN Reason: Constipation Last Admin: 08/22/19 09:45 Dose: 100 mg Metoprolol Succinate (Toprol Xl) 200 mg PO DAILY REPLACED BY [facility] Last Admin: 08/23/19 09:17 Dose: 200 mg Morphine Sulfate (Morphine) 2 mg IVPUSH Q4H PRN PRN Reason: Pain Last Admin: 08/21/19 16:03 Dose: 2 mg Ondansetron HCl (Zofran) 4 mg IVPUSH Q4H PRN PRN Reason: Nausea/Vomiting Last Admin: 08/21/19 14:58 Dose: 4 mg Discontinued Medications Acetaminophen (Tylenol) 650 mg PO NOW ONE Stop: 08/21/19 01:18 Last Admin: 08/21/19 01:24 Dose: 650 mg Aspirin (Aspirin) 324 mg PO ONETIME ONE Stop: 08/20/19 22:52 Last Admin: 08/20/19 23:00 Dose: 324 mg Clopidogrel Bisulfate (Plavix) 300 mg PO ONETIME ONE Stop: 08/20/19 22:52 Last Admin: 08/20/19 23:01 Dose: 300 mg Digoxin (Lanoxin) 250 mcg IVPUSH Q2H REPLACED BY [facility] Stop: 08/22/19 22:01 Last Admin: 08/22/19 22:44 Dose: 250 mcg Diltiazem HCl (Diltiazem) 10 mg IVPUSH ONETIME ONE Stop: 08/21/19 00:54 Last Admin: 08/21/19 01:15 Dose: 10 mg Diltiazem HCl (Cardizem Cd) 120 mg PO DAILY REPLACED BY [facility] Diltiazem HCl (Diltiazem) 10 mg IVPUSH Q3H PRN PRN Reason: HR above 100 Last Admin: 08/22/19 04:45 Dose: 10 mg Furosemide (Lasix) 40 mg IVPUSH NOW ONE Stop: 08/22/19 13:57 Last Admin: 08/22/19 14:29 Dose: 40 mg Heparin Sodium/Sodium Chloride (Heparin-1/2ns 25,000 Units/500) 25,000 unit in 500 mls @ 16.8 mls/hr IV TITRATE NANCIE; Protocol Last Admin: 08/20/19 23:04 Dose: 12 units/kg/hr, 16.8 mls/hr Pantoprazole Sodium 40 mg/ (Sodium Chloride) 10 mls @ 300 mls/hr IV ONETIME ONE Stop: 08/22/19 14:36 Pantoprazole Sodium 40 mg/ (Sodium Chloride) 10 mls @ 300 mls/hr IV ONETIME ONE Stop: 08/21/19 14:36 Last Admin: 08/21/19 14:58 Dose: 300 mls/hr Metoprolol Tartrate (Lopressor) 50 mg PO Q12H NANCIE Metoprolol Tartrate (Lopressor) 25 mg PO Q12H REPLACED BY [facility] Last Admin: 08/22/19 08:16 Dose: 25 mg Metoprolol Tartrate (Lopressor) 50 mg PO ONETIME ONE Stop: 08/21/19 12:08 Last Admin: 08/21/19 12:20 Dose: 50 mg Metoprolol Tartrate (Lopressor) 25 mg PO ONETIME ONE Stop: 08/21/19 23:15 Last Admin: 08/21/19 23:40 Dose: 25 mg Metoprolol Tartrate (Lopressor) 50 mg PO Q12H REPLACED BY [facility] Last Admin: 08/22/19 10:21 Dose: Not Given Metoprolol Tartrate (Lopressor) 25 mg PO ONETIME ONE Stop: 08/22/19 09:07 Last Admin: 08/22/19 09:31 Dose: 25 mg Metoprolol Tartrate (Lopressor) 50 mg PO Q12H REPLACED BY [facility] Metoprolol Tartrate (Lopressor) 50 mg PO TID REPLACED BY [facility] Metoprolol Tartrate (Lopressor) 50 mg PO Q6H REPLACED BY [facility] Last Admin: 08/23/19 08:56 Dose: Not Given Morphine Sulfate (Morphine) 4 mg IVPUSH ONETIME ONE Stop: 08/21/19 00:31 Last Admin: 08/21/19 00:38 Dose: 4 mg Morphine Sulfate (Morphine) 4 mg IVPUSH ONETIME ONE Stop: 08/21/19 01:17 Last Admin: 08/21/19 01:43 Dose: Not Given - Exam General: Alert, Oriented, Cooperative, No Acute Distress Lungs: Clear to Auscultation, Normal Respiratory Effort Cardiovascular: Irregular Rhythm, Tachycardia Extremities: Normal Inspection, Normal Range of Motion, Non-Tender, No Pedal Edema Wound/Incisions: Healing Well Neurological: No New Focal Deficit Psy/Mental Status: Alert, Normal Affect, Normal Mood Sepsis Event Note - Evaluation Sepsis Screening Result: No Definite Risk - Focused Exam Vital Signs: Vital Signs Temp Pulse Pulse Resp BP BP Pulse Ox 08/23/19 13:06 101 H 122/85 08/23/19 09:18 103 H 08/23/19 09:17 103 H 129/75 08/23/19 09:00 08/23/19 08:00 96.5 F L 93 18 129/75 93 L 08/23/19 02:37 100.3 F 102 H 18 124/68 94 L 08/23/19 02:33 113 H 124/68 Pulse Ox 08/23/19 13:06 08/23/19 09:18 08/23/19 09:17 08/23/19 09:00 94 L 08/23/19 08:00 08/23/19 02:37 08/23/19 02:33 Date Exam was Performed: 08/23/19 Time Exam was Performed: 16:31 - Problem List & Annotations (1) Atrial fibrillation SNOMED Code(s): 02915609 Code(s): I48.91 - UNSPECIFIED ATRIAL FIBRILLATION Status: Acute Current Visit: Yes Qualifiers: Atrial fibrillation type: unspecified Qualified Code(s): I48.91 - Unspecified atrial fibrillation (2) Chest pain SNOMED Code(s): 77794022 Code(s): R07.9 - CHEST PAIN, UNSPECIFIED Status: Acute Current Visit: Yes (3) Rheumatoid arthritis SNOMED Code(s): 98611520 Code(s): M06.9 - RHEUMATOID ARTHRITIS, UNSPECIFIED Status: Acute Current Visit: Yes (4) HLD (hyperlipidemia) SNOMED Code(s): 40732611 Code(s): E78.5 - HYPERLIPIDEMIA, UNSPECIFIED Status: Acute Current Visit : Yes - Problem List Review Problem List Initiated/Reviewed/Updated: Yes - My Orders Last 24 Hours: My Active Orders 08/22/19 13:21 IS (RT) [RT Incentive Spirometry] [RC] Q1HWA 08/23/19 14:13 UA RFX REBEL AND CULT IF INDIC [URIN] Routine 08/24/19 05:11 BMP [BASIC METABOLIC PANEL,BMP] [CHEM] AM CBC WITH AUTO DIFF [HEME] AM MAGNESIUM [CHEM] AM 08/25/19 05:11 BMP [BASIC METABOLIC PANEL,BMP] [CHEM] AM CBC WITH AUTO DIFF [HEME] AM MAGNESIUM [CHEM] AM - Plan Plan:: 69 yo female with pmh of RA, atrial fibrillation, chronic anticoagulation, stress induced cardiomyopathy, and recent NSTEMI 1. Chest pain/Afib - Consult Dr Rubio - Troponins normal now, likely elevated due to ischemic demand from uncontrolled Afib. - ECHO reveals EF 50-55% - Metoprolol 200 XL daily, Digoxin 250 mcg, Diltiazem [address] Rubio. Consider Lasix 20 mg daily. - and Luis F eng, will monitor daily - Continue Eliquis 5 mg BID 2. HTN: - Hold Lisinopril for now, BP softer with increase in beta sangeetha VTE prophylaxis: Eliquis Diet: Heart healthy Dispo: 1-2 days, pending HR control
[2019-08-24 06:40] LABS: CARBON DIOXIDE,CO2 22.6 mmol/L (21.0-32.0); POTASSIUM,K 3.9 mmol/L (3.5-5.1)
[2019-08-24] MEDS: Metoprolol Succinate 100 MG Tab.ER PO SCH (08:45)
[2019-08-24] MEDS: Apixaban 2.5 MG Tab PO SCH (08:45)
[2019-08-24] MEDS: Digoxin 250 MCG Tab PO SCH (08:46)
[2019-08-24] MEDS: Diltiazem 120 MG Cap.CD PO SCH (08:46)
--- NOTE | 2019-08-24 10:38 | PCM.DCSUM1 ---
Discharge Summary - Hospital Course Brief History: 69 yo female with pmh of atrial fibrillation, RA who was four days ago presented to the [place] [facility] with complaints of chest pain and shortness of breath. Her troponin was 2.0. She was transferred to [place] and underwent an angiogram which did not show any significant coronary artery disease. She did have some evidence of stress induced cardiomyopathy with an ejection fraction that was diminished around 40%. Her diltiazem was discontinued and she was started on Toprol 50 mg daily to better control her heart rate. She requested to leave before and echocardiogram was performed. She presents today with same chest pain which she says has been intermittent since Thursday. She describes it as a band like across her chest that is made worse with breathing or movement. She denies any fevers, cough or recent travel. Discharge summary from [place] reports a negative COVID-19 test. IN the ED her EKG showed atrial fibrillation iwht HR in 110s with t-wave inversions in V2 and V3 which were old. Troponin was noted to be downtrending at 0.116. She received plavix, ASA, and IV diltiazem. Her chest pain improved with IV morphine. Diagnosis: Stroke: No - Discharge Data Discharge Date: 08/24/19 Discharge Disposition: Home, Self-Care 01 Condition: Good - Referral to Home Health Primary Care Physician: Josiane Meadows NP - Discharge Diagnosis/Problem(s) (1) Atrial fibrillation SNOMED Code(s): 52452650 ICD Code: I48.91 - UNSPECIFIED ATRIAL FIBRILLATION Status: Acute Current Visit: Yes Qualifiers: Atrial fibrillation type: unspecified Qualified Code(s): I48.91 - Unspecified atrial fibrillation (2) Chest pain SNOMED Code(s): 12317942 ICD Code: R07.9 - CHEST PAIN, UNSPECIFIED Status: Acute Current Visit: Yes (3) Rheumatoid arthritis SNOMED Code(s): 57905477 ICD Code: M06.9 - RHEUMATOID ARTHRITIS, UNSPECIFIED Status: Acute Current Visit: Yes (4) HLD (hyperlipidemia) SNOMED Code(s): 40132130 ICD Code: E78.5 - HYPERLIPIDEMIA, UNSPECIFIED Status: Acute Current Visit : Yes - Patient Summary/Data Consults: Consultations Dr Rubio, Cardiology Hospital Course: Admitting Diagnoses: Chest pain Atrial Fibrillation with RVR Discharge Diagnoses: Chest pain- Resolved Atrial Fibrillation with RVR- resolved Atrial fibrillation Other PMH: Recent STEMI RA HTN HLD Anticoagulation Trista was admitted due to chest pain, afib with RVR and elevated troponin. She was recently transferred to [place] for similar symptoms and troponin elevated at 2.0, she had cardiac cath, which was negative for significant CAD. She was discharged home on Metoprolol 50 mg daily as well as Lisinopril 2.5 mg BID. During her stay here, Dr Rubio, Cardiology was consulted regarding afib management and recent NSTEMI. He felt she likely didn't have NSTEMI, could be secondary to afib RVR. She was slowly titrated up on Metoprolol, to ultimately Metoprolol XL 200 mg daily, Digoxin 250 mcg daily, Diltiazem CD 120 daily, HR has been controlled at 90-100s and BP stable in 115/60s. CT of chest obtained to further evaluate for pulmonary congestion, which did show small pericardial effusion and small bilateral pleural effusions. Lasix given and she continued to improve. She will be discharged home today with all of these medications as well as Lasix 20 mg daily as well. She is monitor weight at home as well as blood pressures. She is to return to the ED for concerns of chest pain, lightheadedness and dizziness. She was counseled on the importance of continuing her medications as counseled on as well as not missing Eliquis dosing. She is she follow up with Dr Rubio in 6-8 weeks and follow up with PCP next week. - Patient Instructions Diet: Heart Healthy Diet Activity: As Tolerated Driving: May Drive Today Showering/Bathing: May Shower Notify Provider of: Fever, Increased Pain, Swelling and Redness, Drainage, Nausea and/or Vomiting Other/Special Instructions: Monitor blood pressures at home. If chest pain returns or you have shortness of breath lightheadedness come to the ED for evaluation. Call Dr Rubio with concerns if prior to appointment - Discharge Plan *PRESCRIPTION DRUG MONITORING PROGRAM REVIEWED*: Not Applicable *COPY OF PRESCRIPTION DRUG MONITORING REPORT IN PATIENT JASPREET: Not Applicable Prescriptions/Med Rec: Digoxin [Digitek] 250 mcg PO DAILY #30 tablet Furosemide [Lasix] 20 mg PO DAILY #30 tab Metoprolol Succinate [Toprol XL 100mg] 200 mg PO DAILY #60 tab.er Home Medications: Home Meds Adalimumab [Humira Pediatric Crohn's] 40 mg IM ASDIRECTED 04/17/17 [History] Apixaban [Eliquis] 5 mg PO BID 08/04/18 [History] Diltiazem [Cardizem CD] 120 mg PO DAILY 08/04/18 [History] Digoxin [Digitek] 250 mcg PO DAILY #30 tablet 08/24/19 [Rx] Furosemide [Lasix] 20 mg PO DAILY #30 tab 08/24/19 [Rx] Metoprolol Succinate [Toprol XL 100mg] 200 mg PO DAILY #60 tab.er 08/24/19 [Rx] Oxygen Therapy Mode: Room Air Patient Handouts: Furosemide tablets, Metoprolol extended-release tablets, Nonspecific Chest Pain, Adult, [id number], Digoxin tablets or capsules Referrals: Colette Rubio MD [Physician] - 08/30/19 2:00 pm Trevor Lange MD [Ordering Only Provider] - 08/30/19 12:30 pm - Discharge Summary/Plan Comment DC Time >30 min.: Yes (education with medications and discussion with Dr Rubio) - Patient Data Vitals - Most Recent: Last Vital Signs Temp 98.2 F 08/24/19 07:40 Pulse 102 H 08/24/19 08:46 Resp 16 08/24/19 07:40 BP 105/70 08/24/19 08:46 Pulse Ox 91 L 08/24/19 07:40 Weight - Most Recent: 69.853 kg I&O - Last 24 hours: Intake & Output 08/23/19 08/24/19 08/24/19 22:59 06:59 14:59 Intake Total 980 300 Output Total 1250 500 Balance -270 -200 Lab Results - Last 24 hrs: Laboratory Results - last 24 hr 08/23/19 08/23/19 08/23/19 Range/Units 05:55 05:55 21:10 WBC (4.0-11.0) K/uL RBC (4.30-5.90) M/uL Hgb (12.0-16.0) g/dL Hct (36.0-46.0) % MCV (80.0-98.0) fL MCH (27.0-32.0) pg MCHC (31.0-37.0) g/dL RDW Std Deviation (28.0-62.0) fl RDW Coeff of [place] (11.0-15.0) % Plt Count (150-400) K/uL MPV (7.40-12.00) fL Neut % (Auto) (48.0-80.0) % Lymph % (Auto) (16.0-40.0) % [place] % (Auto) (0.0-15.0) % Eos % (Auto) (0.0-7.0) % Baso % (Auto) (0.0-1.5) % Neut # (Auto) (1.4-5.7) K/uL Lymph # (Auto) (0.6-2.4) K/uL [place] # (Auto) (0.0-0.8) K/uL Eos # (Auto) (0.0-0.7) K/uL Baso # (Auto) (0.0-0.1) K/uL Nucleated RBC % /100WBC Nucleated RBCs # K/uL ESR 19 (0-29) mm/hr Sodium (136-145) mmol/L Potassium (3.5-5.1) mmol/L Chloride (98-107) mmol/L Carbon Dioxide (21.0-32.0) mmol/L BUN (7.0-18.0) mg/dL Creatinine (0.6-1.0) mg/dL Est Cr Clr Drug Dosing mL/min Estimated GFR (MDRD) ml/min Glucose (74-106) mg/dL Calcium (8.5-10.1) mg/dL Magnesium (1.8-2.4) mg/dL C-Reactive Protein 23.00 H (0.00-0.90) mg/dL Urine Color YELLOW Urine Appearance CLEAR Urine pH 6.0 (5.0-8.0) Ur Specific [place] 1.020 (1.001-1.035) Urine Protein TRACE H (NEGATIVE) mg/dL Urine Glucose (UA) NEGATIVE (NEGATIVE) mg/dL Urine Ketones NEGATIVE (NEGATIVE) mg/dL Urine Occult Blood NEGATIVE (NEGATIVE) Urine Nitrite NEGATIVE (NEGATIVE) Urine Bilirubin NEGATIVE (NEGATIVE) Urine Urobilinogen 1.0 (<2.0) EU/dL Ur Leukocyte Esterase NEGATIVE (NEGATIVE) Urine RBC 0-1 (0-2/HPF) Urine WBC 0-1 (0-5/HPF) Ur Epithelial Cells RARE (NONE-FEW) Urine Bacteria FEW (NEGATIVE) Urine Mucus LIGHT (NONE-MOD) 08/24/19 08/24/19 Range/Units 06:15 06:15 WBC 14.60 H (4.0-11.0) K/uL RBC 5.17 (4.30-5.90) M/uL Hgb 14.2 (12.0-16.0) g/dL Hct 43.3 (36.0-46.0) % MCV 83.8 (80.0-98.0) fL MCH 27.5 (27.0-32.0) pg MCHC 32.8 (31.0-37.0) g/dL RDW Std Deviation 42.4 (28.0-62.0) fl RDW Coeff of [place] 14 (11.0-15.0) % Plt Count 247 (150-400) K/uL MPV 10.70 (7.40-12.00) fL Neut % (Auto) 64.8 (48.0-80.0) % Lymph % (Auto) 21.0 (16.0-40.0) % [place] % (Auto) 12.8 (0.0-15.0) % Eos % (Auto) 1.1 (0.0-7.0) % Baso % (Auto) 0.3 (0.0-1.5) % Neut # (Auto) 9.5 H (1.4-5.7) K/uL Lymph # (Auto) 3.1 H (0.6-2.4) K/uL [place] # (Auto) 1.9 H (0.0-0.8) K/uL Eos # (Auto) 0.2 (0.0-0.7) K/uL Baso # (Auto) 0.0 (0.0-0.1) K/uL Nucleated RBC % 0.0 /100WBC Nucleated RBCs # 0 K/uL ESR (0-29) mm/hr Sodium 137 (136-145) mmol/L Potassium 3.9 (3.5-5.1) mmol/L Chloride 103 (98-107) mmol/L Carbon Dioxide 22.6 (21.0-32.0) mmol/L BUN 17 (7.0-18.0) mg/dL Creatinine 1.1 H (0.6-1.0) mg/dL Est Cr Clr Drug Dosing 35.40 mL/min Estimated GFR (MDRD) 49.0 ml/min Glucose 112 H (74-106) mg/dL Calcium 9.2 (8.5-10.1) mg/dL Magnesium 2.1 (1.8-2.4) mg/dL C-Reactive Protein (0.00-0.90) mg/dL Urine Color Urine Appearance Urine pH (5.0-8.0) Ur Specific [place] (1.001-1.035) Urine Protein (NEGATIVE) mg/dL Urine Glucose (UA) (NEGATIVE) mg/dL Urine Ketones (NEGATIVE) mg/dL Urine Occult Blood (NEGATIVE) Urine Nitrite (NEGATIVE) Urine Bilirubin (NEGATIVE) Urine Urobilinogen (<2.0) EU/dL Ur Leukocyte Esterase (NEGATIVE) Urine RBC (0-2/HPF) Urine WBC (0-5/HPF) Ur Epithelial Cells (NONE-FEW) Urine Bacteria (NEGATIVE) Urine Mucus (NONE-MOD) Med Orders - Current: Current Medications Acetaminophen (Tylenol) 650 mg PO Q4H PRN PRN Reason: Headache Last Admin: 08/21/19 22:07 Dose: 650 mg Apixaban (Eliquis) 5 mg PO BID [facility] Last Admin: 08/24/19 08:45 Dose: 5 mg Benzocaine/Menthol (Cepacol Sore Throat) 1 lozenge MUCMEM Q2H PRN PRN Reason: Sore Throat Last Admin: 08/22/19 21:31 Dose: 1 lozenge Bisacodyl (Dulcolax) 10 mg RECTAL DAILY PRN PRN Reason: Constipation Last Admin: 08/22/19 10:40 Dose: 10 mg Digoxin (Lanoxin) 250 mcg PO DAILY [facility] Last Admin: 08/24/19 08:46 Dose: 250 mcg Diltiazem HCl (Cardizem Cd) 120 mg PO DAILY [facility] Last Admin: 08/24/19 08:46 Dose: 120 mg Docusate Sodium (Colace) 100 mg PO DAILY PRN PRN Reason: Constipation Last Admin: 08/22/19 09:45 Dose: 100 mg Metoprolol Succinate (Toprol Xl) 200 mg PO DAILY [facility] Last Admin: 08/24/19 08:45 Dose: 200 mg Morphine Sulfate (Morphine) 2 mg IVPUSH Q4H PRN PRN Reason: Pain Last Admin: 08/21/19 16:03 Dose: 2 mg Ondansetron HCl (Zofran) 4 mg IVPUSH Q4H PRN PRN Reason: Nausea/Vomiting Last Admin: 08/21/19 14:58 Dose: 4 mg Discontinued Medications Acetaminophen (Tylenol) 650 mg PO NOW ONE Stop: 08/21/19 01:18 Last Admin: 08/21/19 01:24 Dose: 650 mg Aspirin (Aspirin) 324 mg PO ONETIME ONE Stop: 08/20/19 22:52 Last Admin: 08/20/19 23:00 Dose: 324 mg Clopidogrel Bisulfate (Plavix) 300 mg PO ONETIME ONE Stop: 08/20/19 22:52 Last Admin: 08/20/19 23:01 Dose: 300 mg Digoxin (Lanoxin) 250 mcg IVPUSH Q2H NANCIE Stop: 08/22/19 22:01 Last Admin: 08/22/19 22:44 Dose: 250 mcg Diltiazem HCl (Diltiazem) 10 mg IVPUSH ONETIME ONE Stop: 08/21/19 00:54 Last Admin: 08/21/19 01:15 Dose: 10 mg Diltiazem HCl (Cardizem Cd) 120 mg PO DAILY [facility] Diltiazem HCl (Diltiazem) 10 mg IVPUSH Q3H PRN PRN Reason: HR above 100 Last Admin: 08/22/19 04:45 Dose: 10 mg Furosemide (Lasix) 40 mg IVPUSH NOW ONE Stop: 08/22/19 13:57 Last Admin: 08/22/19 14:29 Dose: 40 mg Heparin Sodium/Sodium Chloride (Heparin-1/2ns 25,000 Units/500) 25,000 unit in 500 mls @ 16.8 mls/hr IV TITRATE [facility]; Protocol Last Admin: 08/20/19 23:04 Dose: 12 units/kg/hr, 16.8 mls/hr Pantoprazole Sodium 40 mg/ (Sodium Chloride) 10 mls @ 300 mls/hr IV ONETIME ONE Stop: 08/22/19 14:36 Pantoprazole Sodium 40 mg/ (Sodium Chloride) 10 mls @ 300 mls/hr IV ONETIME ONE Stop: 08/21/19 14:36 Last Admin: 08/21/19 14:58 Dose: 300 mls/hr Metoprolol Tartrate (Lopressor) 50 mg PO Q12H NANCIE Metoprolol Tartrate (Lopressor) 25 mg PO Q12H [facility] Last Admin: 08/22/19 08:16 Dose: 25 mg Metoprolol Tartrate (Lopressor) 50 mg PO ONETIME ONE Stop: 08/21/19 12:08 Last Admin: 08/21/19 12:20 Dose: 50 mg Metoprolol Tartrate (Lopressor) 25 mg PO ONETIME ONE Stop: 08/21/19 23:15 Last Admin: 08/21/19 23:40 Dose: 25 mg Metoprolol Tartrate (Lopressor) 50 mg PO Q12H [facility] Last Admin: 08/22/19 10:21 Dose: Not Given Metoprolol Tartrate (Lopressor) 25 mg PO ONETIME ONE Stop: 08/22/19 09:07 Last Admin: 08/22/19 09:31 Dose: 25 mg Metoprolol Tartrate (Lopressor) 50 mg PO Q12H NANCIE Metoprolol Tartrate (Lopressor) 50 mg PO TID NANCIE Metoprolol Tartrate (Lopressor) 50 mg PO Q6H [facility] Last Admin: 08/23/19 08:56 Dose: Not Given Morphine Sulfate (Morphine) 4 mg IVPUSH ONETIME ONE Stop: 08/21/19 00:31 Last Admin: 08/21/19 00:38 Dose: 4 mg Morphine Sulfate (Morphine) 4 mg IVPUSH ONETIME ONE Stop: 08/21/19 01:17 Last Admin: 08/21/19 01:43 Dose: Not Given - Exam General: Reports: Alert, Oriented, Cooperative, No Acute Distress Neck: Reports: Supple Lungs: Reports: Clear to Auscultation, Normal Respiratory Effort Cardiovascular: Reports: Regular Rate, Irregular Rhythm GI/Abdominal Exam: Normal Bowel Sounds, Soft, Non-Tender Extremities: Normal Inspection, Normal Range of Motion, Non-Tender Neurological: Reports: No New Focal Deficit Psy/Mental Status: Reports: Alert, Normal Affect, Normal Mood
--- NOTE | 2019-08-24 14:50 | ECHO ---
The echocardiogram report can be seen in this patient's EMR (Electronic Medical Record) in the REPORTS section. The echocardiogram report has also been scanned into PACS and can also be seen there. [facility]
== END 2019-08-24 11:50 | disposition home or self-care (01) ==
LOC: MW.ED 21:43 → MW.MS 08-21 01:11
PROVIDERS: ADMIT Internal Medicine; ATTEND Internal Medicine
DX: I48.91 Unspecified atrial fibrillation (principal); I11.9 Hypertensive heart disease without heart failure; M06.9 Rheumatoid arthritis, unspecified; E78.5 Hyperlipidemia, unspecified; I25.2 Old myocardial infarction; Z79.01 Long term (current) use of anticoagulants; Z79.899 Other long term (current) drug therapy
CPT/HCPCS: 36415; 71045; 71045-26; 71250; 71250-26; 80048; 80053; 81001; 83735; 83880; 84484; 85025; 85379; 85652; 86140; 93005; 93306; 96365; 96366; 96375; 99284; 99285-25; A9270-GY; C9113; J1160; J1644; J1940; J2270; J2405; J3490; J7050

== ENCOUNTER 2020-04-02 14:21 | Emergency (ER) | payer MEDICARE, OTHER ==
--- NOTE | 2020-04-02 15:05 | EDM.PDOC ---
ED HPI GENERAL MEDICAL PROBLEM - General Chief Complaint: Respiratory Problem Stated Complaint: COUGH SOB Time Seen by Provider: 04/02/20 14:24 Source of Information: Reports: Patient History Limitations: Reports: No Limitations - History of Present Illness INITIAL COMMENTS - FREE TEXT/NARRATIVE: 70-year-old female known COVID-19 diagnosis on 03-18 presents for shortness of breath. Patient notes that after testing positive for Covid, she had persistent cough and shortness of breath with some chest tightness. She went to the respiratory clinic last week and was given a prescription for an antibiotic for presumed pneumonia. He is not certain of the name of the prescription. She notes it was 2 separate pills. Suspect 1 is likely a steroid and the other azithromycin based on patient description. Patient notes that she bought a pulse oximeter, and while feeling short of breath this morning checked her oxygenation which was in the high 80s. She called her primary care physician who recommended she come to the emergency department for assessment. She notes that she feels okay while seated. She currently has mild shortness of breath and chest tightness. She denies any fevers. No lower extremity symptoms. - Related Data Allergies Allergy/AdvReac Type Severity Reaction Status Date / Time No Known Allergies Allergy Verified 04/02/20 14:41 Home Meds: Home Meds Furosemide [Lasix] 20 mg PO DAILY #30 tab 08/24/19 [Rx] Albuterol Sulfate [Albuterol Sulfate Hfa] 2 puff INH Q4HRRT PRN 04/02/20 [History] Amiodarone [Cordarone] 100 mg PO DAILY 04/02/20 [History] Doxycycline [Doxycycline Hyclate] 100 mg PO BID 04/02/20 [History] Metoprolol Succinate [Toprol XL 100mg] 50 mg PO DAILY 04/02/20 [History] methylPREDNISolone [Methylprednisolone] 0 mg PO ASDIRECTED 04/02/20 [History] Past Medical History HEENT History: Reports: Impaired Vision, Other (See Below) Other HEENT History: wears glasses Cardiovascular History: Reports: Afib, Hypertension Other Cardiovascular History: 2 heart attacks 2019 Respiratory History: Reports: None Gastrointestinal History: Reports: None Genitourinary History: Reports: None C[employer] WR[employer]PER History: Reports: Musculoskeletal History: Reports: RA Other Musculoskeletal History: right foot nodules Neurological History: Reports: None Psychiatric History: Reports: Anxiety, Depression Endocrine/Metabolic History: Reports: None Hematologic History: Reports: None Immunologic History: Reports: Other (See Below) Other Immunologic History: RA Oncologic (Cancer) History: Reports: Other (See Below) Other Oncologic History: "skin cancer" Dermatologic History: Reports: None - Infectious Disease History Infectious Disease History: Reports: Chicken Pox, Measles - Past Surgical History Head Surgeries/Procedures: Reports: None HEENT Surgical History: Reports: Tonsillectomy Cardiovascular Surgical History: Reports: None Respiratory Surgical History: Reports: None GI Surgical History: Reports: None Female Surgical History: Reports: None Endocrine Surgical History: Reports: None Neurological Surgical History: Reports: None Musculoskeletal Surgical History: Reports: Other (See Below) Other Musculoskeletal Surgeries/Procedures:: surgery to right foot. Left ankle fusion Oncologic Surgical History: Reports: None Dermatological Surgical History: Reports: None Social & Family History - Family History Family Medical History: Noncontributory - Caffeine Use Caffeine Use: Reports: Coffee - Recreational Drug Use Recreational Drug Use: No ED ROS GENERAL - Review of Systems Review Of Systems: Comprehensive ROS is negative, except as noted in HPI. ED EXAM, GENERAL - Physical Exam Exam: See Below Exam Limited By: No Limitations General Appearance: Alert, WD/WN, No Apparent Distress Nose: Normal Inspection Throat/Mouth: Normal Voice, No Airway Compromise Head: Atraumatic, Normocephalic Neck: Normal Inspection Respiratory/Chest: No Respiratory Distress, Lungs Clear, Normal Breath Sounds, No Accessory Muscle Use Cardiovascular: Normal Peripheral Pulses, Regular Rate, Rhythm, No Edema Extremities: Normal Capillary Refill Neurological: Alert Psychiatric: Normal Affect, Normal Mood Skin Exam: Warm, Dry, Intact, Normal Color Course - Vital Signs Last Recorded V/S: Last Vital Signs Temp 98.6 F 04/02/20 14:43 Pulse 69 04/02/20 14:43 Resp 18 04/02/20 14:43 BP 120/85 04/02/20 14:43 Pulse Ox 94 L 04/02/20 14:50 - Re-Assessments/Exams Free Text/Narrative Re-Assessment/Exam: 04/02/20 15:05 We will get a chest x-ray. Will defer blood work as patient is with normal vital signs. Will follow up chest x-ray results and disposition accordingly. 04/02/20 16:14 Chest x-ray does show evidence of Covid pneumonia. This is consistent with patient's presenting symptoms. Patient however is with normal oxygenation and no signs of systemic disease. Will discharge home with strict return precautions. Departure - Departure Time of Disposition: 16:14 Disposition: Home, Self-Care 01 Condition: Good Clinical Impression: COVID-19 - Discharge Information Instructions: COVID-19: How to Protect Yourself and Others - CDC, Prevent the Spread of COVID-19 if You Are Sick - CDC, COVID-19 Frequently Asked Questions Referrals: Josiane Meadows [employer] [Primary Care Provider] - Forms: ED Department Discharge Additional Instructions: Your chest x-ray does show evidence of Covid. Your oxygen saturation is normal, and there is no indication to stay in the hospital. If your shortness of breath gets worse, you should return to the hospital for reassessment. The following information is given to patients seen in the emergency department who are being discharged to home. This information is to outline your options for follow-up care. We provide all patients seen in our emergency department with a follow-up referral. The need for follow-up, as well as the timing and circumstances, are variable depending upon the specifics of your emergency department visit. If you don't have a primary care physician on staff, we will provide you with a referral. We always advise you to contact your personal physician following an emergency department visit to inform them of the circumstance of the visit and for follow-up with them and/or the need for any referrals to a consulting specialist. The emergency department will also refer you to a specialist when appropriate. This referral assures that you have the opportunity for follow-up care with a specialist. All of these measure are taken in an effort to provide you with optimal care, which includes your follow-up. Under all circumstances we always encourage you to contact your private physician who remains a resource for coordinating your care. When calling for follow-up care, please make the office aware that this follow-up is from your recent emergency room visit. If for any reason you are refused follow-up, please contact the [facility] Emergency Department at and asked to speak to the emergency department charge nurse. Please follow up with your primary care physician. If you do not have a primary care physician, see below: [facility] [address] [place] [address], [place] [id number] [facility] [address] [place], [place] [phone] Sepsis Event Note (ED) - Evaluation Sepsis Screening Result: No Definite Risk - Focused Exam Vital Signs: Vital Signs Temp Pulse Resp BP Pulse Ox 04/02/20 14:50 94 L 04/02/20 14:43 98.6 F 69 18 120/85 93 L
--- NOTE | 2020-04-02 16:02 | CR ---
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 The cardiac silhouette is stable. The bony thorax is grossly intact. There is no pneumothorax. Impression: Extensive patchy ground-glass opacities within the bilateral hemithoraces commensurate with history of barr virus 19 infection. Dictated by Esequiel Zavala MD @ Apr 02 2020 3:58PM Signed by Dr. Esequiel Zavala @ Apr 02 2020 4:01PM
== END 2020-04-02 16:35 | disposition home or self-care (01) ==
LOC: MW.ED 14:21
DX: U07.1 COVID-19 (principal); I10 Essential (primary) hypertension; F41.9 Anxiety disorder, unspecified; F32.9 Major depressive disorder, single episode, unspecified; Z79.899 Other long term (current) drug therapy
CPT/HCPCS: 71045; 71045-26; 99284-25

== ENCOUNTER 2022-05-09 18:31 | Emergency (ER) | payer OTHER, MEDICARE | END 2022-05-09 20:55 | disposition home or self-care (01) | LOC: MW.ED 18:31 | DX: S39.012A Strain of muscle, fascia and tendon of lower back, initial encounter (principal); I48.91 Unspecified atrial fibrillation; I10 Essential (primary) hypertension; Z79.01 Long term (current) use of anticoagulants; Z79.899 Other long term (current) drug therapy; V63.6XXA Passenger in heavy transport vehicle injured in collision with car, pick-up truck or van in traffic accident, initial encounter; Y92.410 Unspecified street and highway as the place of occurrence of the external cause | CPT/HCPCS: 99283 ==

== ENCOUNTER 2022-10-14 13:20 | Emergency (ER) | payer MEDICARE, OTHER | END 2022-10-14 15:52 | disposition home or self-care (01) | LOC: MW.ED 13:20 | DX: R07.81 Pleurodynia (principal); I48.91 Unspecified atrial fibrillation; I10 Essential (primary) hypertension; Z79.899 Other long term (current) drug therapy; Z79.01 Long term (current) use of anticoagulants | CPT/HCPCS: 71045; 71045-26; 99283 ==